=== PATIENT | male | born 1945 | race Caucasian/White ===

== ENCOUNTER 2019-02-03 06:15 | Day surgery (SDC) | payer MEDICARE ==
[2019-02-02 17:29] LABS: Absolute Lymphocytes (CBC) 1.3 K/uL (0.7-4.9); Basophils % 0.6 % (0-1.3); Eosinophils % 2.1 % (0-4.4); Lymphocytes % 10.1 % (15.3-44.8); Monocytes % 7.5 % (3.3-12.3); RBC Red Blood Cell Count 4.65 M/uL (4.33-5.43)
--- NOTE | 2019-02-02 17:34 | RAD REPORT ---
EXAM DESCRIPTION: RAD - Chest Pa And Lat (2 Views) - 02/02/2019 5:14 pm CLINICAL HISTORY: Preop chest, neck soft tissue surgery pending COMPARISON: December 2012 TECHNIQUE: PA and lateral views of the chest were obtained. FINDINGS: The lungs are clear of an acute infiltrate or mass. Calcified granuloma right midlung fie ld stable. Heart size is normal and central vasculature is within normal limits. No pleural effusion or pneumothorax seen. No acute bony finding noted. No aortic abnormality. IMPRESSION: No acute cardiopulmonary process. Chronic interstitial lung changes are present. Findings are similar to comparison.
[2019-02-02 17:54] LABS: Potassium 4.2 mmol/L (3.5-5.1)
--- OUTSIDE RECORDS SUMMARY | 2019-02-03 06:25 | XMS REPORT ---
:1945 [facility] Address [address] [place] [address] [address] [place] [address] Care Team Providers Name Role Phone Unavailable Unavailable Unavailable Problems This patient has no known problems. Allergies, Adverse Reactions, Alerts This patient has no known allergies or adverse reactions. Medications This patient has no known medications.
[2019-02-03] MEDS ORDERED: Ringers Lactate 1,000 ML IV ONE ×2 (06:53→08:40)
[2019-02-03] MEDS ORDERED: MIDAZOLAM HCL 2 MG/2 ML INJ ONE (07:28)
[2019-02-03] MEDS ORDERED: FENTANYL CITR 100 MCG/2 ML ONE (07:28)
[2019-02-03] MEDS ORDERED: PROPOFOL 200 MG/20 ML VIAL IV ONE (07:28)
[2019-02-03] MEDS ORDERED: LIDOCAINE 2% MPF 5 ML VIAL ONE (07:28)
[2019-02-03] MEDS ORDERED: CEFAZOLIN/SWI 1gm 1 GM/10 ML SYR ONE (07:49)
[2019-02-03] MEDS ORDERED: EPHEDRINE SULF 50 MG/ML VIAL ONE (08:14)
[2019-02-03] MEDS ORDERED: KETOROLAC 30 MG/ML INJ ONE (08:27)
--- NOTE | 2019-02-03 08:29 | P.BOP ---
Preoperative diagnosis: infected posterior neck subQ mass with abscess, cellulitis Postoperative diagnosis: same Primary procedure: Excision biopsy infected posterior neck subQ mass with abscess drainage Secondary procedure: 4 x 4x 1.5 cm Estimated blood loss: <10cc Specimen: mass Findings: abscess with purulent discharge Anesthesia: General Complications: None Transferred to: Recovery Room Condition: Good
[2019-02-03] MEDS ORDERED: CODEINE 30MG/APAP 300MG TAB ONE (09:41)
--- NOTE | 2019-02-10 15:48 | OP ---
Date of Procedure: 02/03/2019 Surgeon: Gideon Dodge MD Preoperative Diagnosis: Infected posterior neck subcutaneous mass with abscess and cellulitis. Postoperative Diagnosis: Infected posterior neck subcutaneous mass with abscess and cellulitis. Procedures: Excisional biopsy of infected posterior neck subcutaneous mass with abscess drainage, 4 x 4 x 1.5 cm. Estimated Blood Loss: Less than 10 cc. Specimen: Mass and abscess culture. Anesthesia: General plus local. Indications: This is a case of a male who comes to us with a posterior neck mass with abscess cellul itis, infected. Benefits, alternatives, and risks of excision fully explained, which include but are not limited to infection, bleeding, damage to adjacent structures, anesthesia complication, nonheali ng of wound, NM, and even . He also understands this may not relieve any symptoms. He might ne ed more than one surgical intervention. He understood, signed a consent. The area of concern was ma rked by me and the patient in the holding room. Description Of Procedure: The patient was brought to the operating room, placed in supine position. Anesthesia was done without complication. The posterior neck area was prepped and draped in usual s terile fashion. Local anesthesia was applied after time-out was called. A wedge incision was made i n the skin. We noticed the mass present goes all the way deep, and then deep to that mass there was abscess present. Purulent discharge was obtained for culture. Mass was completely excised. Hemosta sis obtained and the area was packed with wet-to-dry dressing. Loculations were explored and opened on that abscess. The area was profusely irrigated. Once again, hemostasis was obtained, and then th e area was packed. The patient tolerated the procedure well. The patient was sent to Recovery in st able condition. JACKI/HOWARD Voice ID: [id number] Report ID: [id number]
--- NOTE | 2019-02-10 15:48 | DS ---
Date of Discharge: 02/03/2019 Diagnoses: Infected posterior neck subcutaneous mass with complex abscess. Procedures: Excisional biopsy of infected posterior neck subcutaneous mass with drainage of a comple x abscess. Disposition: Home. Discharge Instructions: Activity as tolerated. No heavy lifting. Follow up in my office in 1 week. Call for appointment [phone]. Keep area dry for 24 hours, then wet-to-dry dressing daily. The alejandrina shelby stated he has a family member who will do that for him. For medications see orders. JACKI/MODL Voice ID: [id number] Report ID: [id number]
== END 2019-02-03 10:25 | disposition home or self-care (01) ==
LOC: OR 06:15
PROVIDERS: ATTEND Surgery
PROC: 0JB50ZZ Excision of Left Neck Subcutaneous Tissue and Fascia, Open Approach (ICD-10-PCS; principal; 2019-02-03 07:30)
DX: L72.0 Epidermal cyst (principal); L03.221 Cellulitis of neck; L02.11 Cutaneous abscess of neck; I11.9 Hypertensive heart disease without heart failure; I25.2 Old myocardial infarction; F17.210 Nicotine dependence, cigarettes, uncomplicated; Z79.02 Long term (current) use of antithrombotics/antiplatelets; Z79.899 Other long term (current) drug therapy; Z95.5 Presence of coronary angioplasty implant and graft
CPT/HCPCS: 11426; 87070; 85025; 80048; 36415; 87205; 88304; 87075; 71046; J2704; J2250; J3010; J0690; 88305

== ENCOUNTER 2022-07-27 08:19 | Emergency (ER) | payer OTHER ==
--- OUTSIDE RECORDS SUMMARY | 2022-07-27 08:22 | XMS REPORT | Continuity of Care Document ---
:1945 Author Organization [facility] Address [address] [place] [address] Dr. Carrero [address] [place] [id number] Care Team Providers Name Role Phone Unavailable Unavailable Unavailable Problems This patient has no known problems. Allergies, Adverse Reactions, Alerts This patient has no known allergies or adverse reactions. Medications This patient has no known medications. Procedures This patient has no known procedures. Results This patient has no known results.
[2022-07-27 09:30] LABS: Absolute Lymphocytes (CBC) 0.6 K/uL (0.7-4.9); Hematocrit 38.9 % (39.6-49.0); Lymphocytes % 2.6 % (15.3-44.8); MCV 92.2 fL (80-100); MPV 7.2 fL (7.6-11.3); RBC Red Blood Cell Count 4.22 M/uL (4.33-5.43)
[2022-07-27 09:32] LABS: Protime INR 1.62
[2022-07-27] MEDS ORDERED: FENTANYL CITR 100 MCG/2 ML ONE (09:34)
[2022-07-27] MEDS ORDERED: ONDANSETRON 4 MG/2 ML VIAL ONE (09:34)
[2022-07-27] MEDS ORDERED: NA CHLORIDE 0.9% 1,000 ML ONE (09:35)
[2022-07-27] MEDS ORDERED: DIGOXIN 0.25 MG/ML AMP ONE (09:35)
[2022-07-27] MEDS ORDERED: NA CHLORIDE 0.9% 100 ML IV ONE (09:35)
[2022-07-27] MEDS ORDERED: PIPERACIL/TAZO 3.375 GM VIAL IV ONE (09:35)
[2022-07-27] MEDS ORDERED: NA CHLORIDE 0.9% 500 ML ONE (09:35)
[2022-07-27 09:51] LABS: Albumin 2.2 g/dL (3.4-5.0); Bilirubin Direct 0.5 mg/dL (0-0.2); Magnesium 2.2 mg/dL (1.8-2.4); Potassium 4.6 mmol/L (3.5-5.1); Protein, Total 7.6 g/dL (6.4-8.2)
--- NOTE | 2022-07-27 10:23 | RAD REPORT ---
EXAM DESCRIPTION: RAD - Chest Single View - 07/27/2022 10:01 am CLINICAL HISTORY: ABDOMINAL DISTENTION COMPARISON: Portable 01/14/2013 TECHNIQUE: AP portable chest image was obtained 07/27/2022 10:01 am . FINDINGS: Lung volumes are low. No dense consolidation seen. Incidental calcified granuloma in the m id right lung field similar to comparison. There is interstitial and alveolar prominence suggesting a mild edema or infiltrate. Heart size is prominent but stable. Central vasculature is mildly prominen t. No pneumothorax or large pleural effusion. No acute bony abnormality seen. No acute aortic findings suspected. IMPRESSION: Mild edema pattern is evident. This could be from CHF/volume overload or interstitial in filtrate.
--- NOTE | 2022-07-27 10:36 | RAD REPORT ---
EXAM DESCRIPTION: CT - Abdomen Pelvis W Contrast - 07/27/2022 10:09 am CLINICAL HISTORY: Abdominal pain, acute, nonlocalized COMPARISON: CT ABDOMEN PELVIS WO CONTRAST dated 01/14/2013; Chest Single View dated 07/27/2022 TECHNIQUE: Biphasic, helical CT imaging of the abdomen and pelvis was performed following 100 ml non -ionic IV contrast. Oral contrast: No. All CT scans are performed using dose optimization technique as appropriate and may include automated exposure control or mA/KV adjustment according to patient size. FINDINGS: Lung base interstitial markings are mildly prominent. This could be atelectasis, scarring or mild interstitial edema or infiltrate. No pneumothorax or pleural effusion. No pericardial effusio n. The liver, spleen, and pancreas show no suspicious findings. Gallbladder and biliary tree are also wi thout suspicious finding. Symmetric renal function is seen with no hydronephrosis or suspicious renal mass. Multiple bilateral renal cysts are present. There is an exophytic 2.7 centimeter upper pole cyst on the right. A 2.5 santiago timeter cyst is present in the parenchyma of the upper pole. A partially exophytic 3.6 centimeter cys t is present lateral mid left kidney. No pyelonephritis or acute parenchymal process. No bladder abno rmalities. No adrenal abnormalities. No dilated bowel loops or bowel wall thickening. No appendicitis findings. From the cecum to the mid descending colon there is no acute finding. In the left lower quadrant at the distal most aspect of t he descending colon there is a 4.8 centimeter masslike density present. There is a 6 x 5.5 x 3.7 cent imeter abscess in the peritoneal fat lateral to the mass. The abscess involves the lateral left abdom inal wall and deep muscular layer. A smaller 3 x 2 cm abscess is present in the peritoneal fat tool supervisor ior to the mass. This abscess abuts the anterior pararenal fascia. The colon mass is partially or ful ly exophytic to the abdominal wall. There is stranding in the peritoneal fat. No extraluminal free ai r. Sigmoid colon and rectum are unremarkable. No free fluid or pneumatosis. Fat extends into the origin of each inguinal canal. No bulky lymphade nopathy. Disc and bone degenerative changes are present. No pathologic bone process. Vascular calcifications a re present. No acute vascular finding. IMPRESSION: A 4.8 centimeter masslike density is present in the distal most descending colon segment in the left lower quadrant. Colon malignancy is a primary consideration. Patient does not demonstrate diverticulosis making diver ticulitis unlikely. Nonspecific colitis is possible. Contained colon perforation has likely occurred. There are 6 centimeter and 3 centimeter sized absces ses present lateral and posterior to the colon mass density. Lateral 6 centimeter abscess involves th e abdominal wall and deep layer the oblique musculature. The smaller 3 centimeter posterior abscess a buts the pararenal fascia. Retroperitoneal extension is not confirmed.
[2022-07-27] MEDS ORDERED: METOPROLOL TARTRATE 5 MG/5 ML INJ IV ONE (10:55)
[2022-07-27] MEDS ORDERED: FUROSEMIDE 20 MG/ 2ML VIAL ONE (10:55)
[2022-07-27 11:13] LABS: SARS-CoV-2 Antigen Rapid Res Negative (Negative)
[2022-07-27 11:17] LABS: Thyroid Stimulating Hormone 7.57 uIU/mL (0.360-3.740)
[2022-07-27] MEDS ORDERED: HYDROMORPHONE HCL 1 MG/ML INJ ONE (11:43)
--- NOTE | 2022-07-27 12:06 | EDPHYS ---
Physician Documentation [facility] Name: Martinez Nye Age: 76 yrs Sex: Male : 1945 Arrival Date: 07/27/2022 Time: 08:23 Bed 2 Private MD: ED Physician Jose Smart HPI: 07/27 11:50 This 76 yrs old Male presents to ER via Wheelchair with complaints of kendy Abdominal Pain. 11:50 The patient has shortness of breath at rest, with light activity. Onset: The kendy symptoms/episode began/occurred 14 day(s) ago. Historical: - Allergies: 08:59 No Known Allergies; iw - PMHx: 08:59 Myocardial infarction; iw - PSHx: 08:59 cardiac stents; iw - Social history:: Smoking status: unknown. - Family history:: not pertinent. ROS: 11:50 Constitutional: Negative for fever, chills, and weight loss, Eyes: Negative for injury, kendy pain, redness, and discharge, ENT: Negative for injury, pain, and discharge, Neck: Negative for injury, pain, and swelling, Back: Negative for injury and pain, : Negative for injury, bleeding, discharge, and swelling, MS/Extremity: Negative for injury and deformity, Skin: Negative for injury, rash, and discoloration, Neuro: Negative for headache, weakness, numbness, tingling, and seizure, Psych: Negative for depression, anxiety, suicide ideation, homicidal ideation, and hallucinations, Allergy/Immunology: Negative for hives, rash, and allergies, Endocrine: Negative for neck swelling, polydipsia, polyuria, polyphagia, and marked weight changes, Hematologic/Lymphatic: Negative for swollen nodes, abnormal bleeding, and unusual bruising. 11:50 Cardiovascular: Positive for palpitations, paroxysmal nocturnal dyspnea. 11:50 Respiratory: Positive for cough, shortness of breath, on exertion. 11:50 Abdomen/GI: Positive for abdominal pain, nausea, abdominal distension, of the left upper quadrant and left lower quadrant. Exam: 11:50 Constitutional: This is a well developed, well nourished patient who is awake, alert, kendy and in no acute distress. Head/Face: Normocephalic, atraumatic. Eyes: Pupils equal round and reactive to light, extra-ocular motions intact. Lids and lashes normal. Conjunctiva and sclera are non-icteric and not injected. Cornea within normal limits. Periorbital areas with no swelling, redness, or edema. ENT: Nares patent. No nasal discharge, no septal abnormalities noted. Tympanic membranes are normal and external auditory canals are clear. Oropharynx with no redness, swelling, or masses, exudates, or evidence of obstruction, uvula midline. Mucous membranes moist. Neck: Trachea midline, no thyromegaly or masses palpated, and no cervical lymphadenopathy. Supple, full range of motion without nuchal rigidity, or vertebral point tenderness. No Meningismus. Chest/axilla: Normal chest wall appearance and motion. Nontender with no deformity. No lesions are appreciated. Back: No spinal tenderness. No costovertebral tenderness. Full range of motion. Male : Normal genitalia with no discharge or lesions. Skin: Warm, dry with normal turgor. Normal color with no rashes, no lesions, and no evidence of cellulitis. MS/ Extremity: Pulses equal, no cyanosis. Neurovascular intact. Full, normal range of motion. Neuro: Awake and alert, GCS 15, oriented to person, place, time, and situation. Cranial nerves II-XII grossly intact. Motor strength 5/5 in all extremities. Sensory grossly intact. Cerebellar exam normal. Normal gait. Psych: Awake, alert, with orientation to person, place and time. Behavior, mood, and affect are within normal limits. 11:50 Cardiovascular: Rate: tachycardic, actual rate is 140 bpm, Rhythm: irregularly irregular, Pulses: Pulses are 4+ in bilateral radial, brachial, femoral, popliteal, posterior tibial and and dorsalis pedis arteries.. Heart sounds: normal, Edema: is not appreciated, JVD: is not appreciated. 11:50 ECG was reviewed by the Attending Physician. 11:50 Respiratory: the patient does not display signs of respiratory distress, Respirations: normal, no acute changes, is not noted, Breath sounds: rales, that are mild, are located in both bases, bronchial sounds, that are mild, are scattered, rhonchi, that are mild, are scattered, stridor, is not appreciated, + upper airway congestion. Respiratory rate: 18 11:50 Abdomen/GI: Inspection: distension, Bowel sounds: diminished, in all quadrants, Palpation: moderate abdominal tenderness, rebound tenderness, is appreciated in the left lower quadrant, voluntary guarding, is elicited in the left lower quadrant, Liver: no appreciated palpable abnormalities, Hernia: not appreciated. 11:50 Musculoskeletal/extremity: DVT Exam: No signs of deep vein thrombosis. no pain, no swelling, no tenderness, negative Homans' sign noted on exam, no appreciated bluish discoloration, no erythema, no increased warmth. Vital Signs: 08:57 BP 101 / 82; Pulse 145; Resp 16; Temp 97.4; Pulse Ox 97% ; Weight 77.11 kg; Height 5 iw ft. 7 in. (170.18 cm); Pain 10/10; 09:43 BP 105 / 73; Pulse 133; Resp 18; Pulse Ox 97% on R/A; ph 10:42 BP 107 / 62; Pulse 112; Resp 22; Pulse Ox 98% on R/A; ld1 10:51 BP 116 / 67; Pulse 104; Resp 18; Pulse Ox 99% on R/A; Pain 8/10; ld1 11:55 BP 113 / 66; Pulse 101; Resp 20; Pulse Ox 94% on R/A; ph 12:35 BP 102 / 68; Pulse 105; eh3 12:39 BP 136 / 81; Pulse 105; Resp 20; Pulse Ox 95% on R/A; eh3 08:57 Body Mass Index 26.63 (77.11 kg, 170.18 cm) iw MDM: 08:26 Patient medically screened. kendy 11:57 Differential diagnosis: Bronchitis CHF exacerbation, dehydration, pneumonia, reactive kendy airway disease, bowel obstruction, Cholelithiasis, diverticulitis, Mesenteric ischemia or infarction, non-specific abd pain, pancreatitis, Peptic Ulcer Disease, Pyelonephritis, urinary tract infection. Antibiotic administration: ZOSYN. The patient's Wells Deep Vein Thrombosis Score was calculated as follows: Heart Rate >100 BPM (1.5 Pts) Total Score: 0-2 Pts- Low Risk. The patient's pulmonary embolism risk score was calculated as follows: the patients heart rate is greater than 100 beats per minute (1.5 Pts) Total Score: 0-2 points. This patient was found to be at low risk for a pulmonary embolism by using the Well's assessment criteria. Immunization status: Pneumococcal vaccine: Not up to date Influenza vaccine: Not up to date. Data reviewed: vital signs, nurses notes, lab test result(s), cardiac enzymes, CBC, electrolytes, hepatic panel, urinalysis, EKG, radiologic studies. Data interpreted: monitoring coordinator: rate is 122 beats/min, rhythm is atrial fibrillation, Pulse oximetry: on room air is 94 %. Test interpretation: by ED physician or midlevel provider: ECG, plain radiologic studies. Counseling: I had a detailed discussion with the patient and/or guardian regarding: the historical points, exam findings, and any diagnostic results supporting the discharge/admit diagnosis, lab results, radiology results, the need to transfer to another facility, for higher level of care, [facility] does not immediately have the required specialist. Physician consultation: Gideon Buck MD regarding consult, patient's condition, after a discussion of the case, a recommendation for transfer for higher level of care is made, DR BUCK IN OR CURRENTLY. 07/27 08:30 Order name: Basic Metabolic Panel; Complete Time: 10:18 [facility] 07/27 08:30 Order name: CBC with Diff [facility] 07/27 08:30 Order name: LFT's; Complete Time: 10:18 [facility] 07/27 08:30 Order name: Magnesium; Complete Time: 10:18 [facility] 07/27 08:30 Order name: NT PRO-BNP; Complete Time: 10:18 [facility] 07/27 08:30 Order name: PT-INR; Complete Time: 09:32 [facility] 07/27 08:30 Order name: Troponin HS; Complete Time: 10:18 [facility] 07/27 08:30 Order name: XRAY Chest (1 view); Complete Time: 10:40 [facility] 07/27 08:30 Order name: Lipase; Complete Time: 10:18 [facility] 07/27 08:31 Order name: CT Abd/Pelvis - IV Contrast Only; Complete Time: 10:40 [facility] 07/27 09:13 Order name: TSH; Complete Time: 11:45 [facility] 07/27 09:13 Order name: SARS RAPID; Complete Time: 11:45 [facility] 07/27 09:36 Order name: Manual Differential [facility] 07/27 11:20 Order name: T4 Free; Complete Time: 11:45 [facility] 07/27 08:30 Order name: EKG; Complete Time: 08:31 [facility] 07/27 08:30 Order name: Cardiac monitoring; Complete Time: 09:30 [facility] 07/27 08:30 Order name: EKG - Nurse/Tech; Complete Time: 09:55 [facility] 07/27 08:30 Order name: IV Saline Lock; Complete Time: 09:43 [facility] 07/27 08:30 Order name: Labs collected and sent; Complete Time: 09:30 [facility] 07/27 08:30 Order name: O2 Per Protocol; Complete Time: 09:30 [facility] 07/27 08:30 Order name: O2 Sat Monitoring; Complete Time: 09:30 [facility] 07/27 09:33 Order name: IV Saline Lock - Large Bore; Complete Time: :43 [facility] EC:50 Rate is 145 beats/min. Rhythm is irregularly irregular. QRS [place] is Normal. GA interval kendy is normal. QRS interval is normal. QT interval is normal. No Q waves. T waves are Normal. No ST changes noted. Clinical impression: Atrial Fibrillation. Interpreted by me. Reviewed by me. Administered Medications: 09:48 Drug: NS 0.9% 1000 ml Route: IV; Rate: 125 ml/hr; Site: left antecubital; ld1 12:36 Follow up: IV Status: Infusion continued upon transfer 3 09:48 Drug: NS 0.9% 500 ml Route: IV; Rate: bolus; Site: left antecubital; ld1 12:36 Follow up: IV Status: Completed infusion; IV Intake: 500ml eh3 09:48 Drug: Digoxin 0.5 mg Route: IVP; Site: left antecubital; ld1 12:37 Follow up: Response: Cardiac rhythm changed eh3 09:48 Drug: Zosyn (piperacillin-tazobactam) 3.375 grams Route: IVPB; Infused Over: 60 mins; ld1 Site: left antecubital; 11:00 Follow up: Response: No adverse reaction; IV Status: Completed infusion; IV Intake: eh3 100ml 09:48 Drug: fentaNYL (PF) 25 mcg Route: IVP; Site: left antecubital; ld1 12:37 Follow up: Response: No adverse reaction eh3 09:48 Drug: fentaNYL (PF) 25 mcg Route: IVP; Site: left antecubital; ld1 12:37 Follow up: Response: No adverse reaction eh3 09:48 Drug: Zofran (Ondansetron) 4 mg Route: IVP; Site: left antecubital; ld1 12:38 Follow up: Response: No adverse reaction eh3 10:57 Drug: Lopressor (metoprolol) 5 mg Route: IVP; Site: left antecubital; ld1 12:35 Follow up: BP 102 / 68; Pulse 105 bpm; Response: Other eh3 10:57 Drug: fentaNYL (PF) 25 mcg Route: IVP; Site: left antecubital; ld1 12:34 Follow up: Response: No adverse reaction eh3 10:58 Drug: Lasix (furosemide) 20 mg Route: IVP; Site: left antecubital; ld1 12:35 Follow up: Response: No adverse reaction eh3 11:44 Drug: Dilaudid (HYDROmorphone) 1 mg Route: IVP; Site: left antecubital; ld1 12:34 Follow up: Response: Pain is decreased eh3 Disposition: 12:05 Critical Care:. kendy Disposition Summary: 07/27/22 12:05 Transfer Ordered Transfer Location: [facility] kendy Reason: Higher level of care kendy Condition: Fair kendy Problem: new kendy Symptoms: have improved kendy Accepting Physician: ROLANDO ANTONIO , SURGEON DR ROBERTO(07/27/22 13:02) 3 Diagnosis - Unspecified atrial fibrillation - WITH RVR kendy - Elevated white blood cell count kendy - Perforation of intestine (nontraumatic) - COLON MASS, CONTAINED ABSCESS 6CM, 3 CM kendy - Lower abdominal pain, unspecified - LEFT LOWER QUADRANT kendy Forms: - Medication Reconciliation Form kendy - SBAR form kendy Critical care time excluding procedures: 12:05 Critical care time: Bedside Care: 25 minutes, Consultation: 15 minutes. Total time: 40 kendy minutes Signatures: Dispatcher [employer] Jose Tomlin MD MD cha Mickail, Joel, PA PA Kristy Pastrana RN RN Araceli Stover RN RN Sharda Rosales RN RN ld1 Charla Stover RN RN 3 Corrections: (The following items were deleted from the chart) 11:52 11:50 Back: Positive for kendy kendy 13:02 12:05 ROLANDO ANTONIO , SURGEON DR FELISA larry 3
--- NOTE | 2022-07-27 12:06 | ER ---
Nurse's Notes [facility] Name: Martinez Nye Age: 76 yrs Sex: Male : 1945 Arrival Date: 07/27/2022 Time: 08:23 Bed 2 Private MD: Diagnosis: Unspecified atrial fibrillation-WITH RVR;Elevated white blood cell count;Perforation of intestine (nontraumatic)-COLON MASS, CONTAINED ABSCESS 6CM, 3 CM;Lower abdominal pain, unspecified-LEFT LOWER QUADRANT Presentation: 07/27 08:57 Chief complaint: Patient states: left lower abd pain X 10-12 days, no diarrhea or iw vomiting. Coronavirus screen: At this time, the client does not indicate any symptoms associated with coronavirus-19. Ebola Screen: Patient negative for fever greater than or equal to 101.5 degrees Fahrenheit, and additional compatible Ebola Virus Disease symptoms Patient denies exposure to infectious person. Patient denies travel to an Ebola-affected area in the 21 days before illness onset. No symptoms or risks identified at this time. Initial Sepsis Screen: Does the patient meet any 2 criteria? No. Patient's initial sepsis screen is negative. Does the patient have a suspected source of infection? No. Patient's initial sepsis screen is negative. Risk Assessment: Do you want to hurt yourself or someone else? Patient reports desire/thoughts of hurting themselves or someone else. Provider notified. Onset of symptoms was July 16, 2022. 08:57 Method Of Arrival: Wheelchair iw 08:57 Acuity: QUENTIN 3 iw 09:11 Acuity: QUENTIN 2 iw Historical: - Allergies: 08:59 No Known Allergies; iw - PMHx: 08:59 Myocardial infarction; iw - PSHx: 08:59 cardiac stents; iw - Social history:: Smoking status: unknown. - Family history:: not pertinent. Screenin:41 Abuse screen: Denies threats or abuse. Denies injuries from another. Nutritional ph screening: No deficits noted. Tuberculosis screening: No symptoms or risk factors identified. Fall Risk None identified. Assessment: 09:41 General: Appears in no apparent distress. comfortable, Behavior is cooperative, ph appropriate for age. Pain: Complains of pain in left lower quadrant. Neuro: Level of Consciousness is awake, alert, obeys commands, Oriented to person, place, time. Cardiovascular: Capillary refill < 3 seconds in bilateral fingers Patient's skin is warm and dry. Respiratory: Airway is patent Respiratory effort is even, unlabored. GI: Abdomen is non-distended, Abd is soft X 4 quads Reports lower abdominal pain, Patient currently denies nausea, vomiting. Derm: Skin is fragile, is thin, Skin is pink, warm \T\ dry. Musculoskeletal: Circulation, motion, and sensation intact. Range of motion: intact in all extremities. 09:49 Reassessment: No changes from previously documented assessment. Patient and/or family ld1 updated on plan of care and expected duration. Pain level reassessed. Patient is alert, oriented x 3, equal unlabored respirations, skin warm/dry/pink. 12:39 General: Appears in no apparent distress. comfortable, Behavior is cooperative, eh3 appropriate for age. Pain: Complains of pain in left lower quadrant. Neuro: Level of Consciousness is awake, alert, obeys commands, Oriented to person, place, time. Cardiovascular: Capillary refill < 3 seconds Patient's skin is warm and dry. Respiratory: Airway is patent Respiratory effort is even, unlabored, Respiratory pattern is regular, symmetrical. GI: Abdomen is round non-distended, Bowel sounds present X 4 quads. Abd is soft X 4 quads. : No signs and/or symptoms were reported regarding the genitourinary system. EENT: No signs and/or symptoms were reported regarding the EENT system. Derm: No signs and/or symptoms reported regarding the dermatologic system. Musculoskeletal: Circulation, motion, and sensation intact. Range of motion: intact in all extremities. Vital Signs: 08:57 BP 101 / 82; Pulse 145; Resp 16; Temp 97.4; Pulse Ox 97% ; Weight 77.11 kg; Height 5 iw ft. 7 in. (170.18 cm); Pain 10/10; 09:43 BP 105 / 73; Pulse 133; Resp 18; Pulse Ox 97% on R/A; ph 10:42 BP 107 / 62; Pulse 112; Resp 22; Pulse Ox 98% on R/A; ld1 10:51 BP 116 / 67; Pulse 104; Resp 18; Pulse Ox 99% on R/A; Pain 8/10; ld1 11:55 BP 113 / 66; Pulse 101; Resp 20; Pulse Ox 94% on R/A; ph 12:35 BP 102 / 68; Pulse 105; eh3 12:39 BP 136 / 81; Pulse 105; Resp 20; Pulse Ox 95% on R/A; eh3 08:57 Body Mass Index 26.63 (77.11 kg, 170.18 cm) iw Vitals: 09:43 Cardiac Rhythm Assessment Atrial fibrillation W/rapid ventricular response. ph ED Course: 08:23 Patient arrived in ED. rg4 08:26 Jose Smart MD is Attending Physician. kendy 08:59 Triage completed. iw 09:00 Arm band placed on. iw 09:19 Initial lab(s) drawn, by me, sent to lab. tm3 09:41 Patient has correct armband on for positive identification. Bed in low position. Call ph light in reach. Side rails up X 1. Client placed on continuous cardiac and pulse oximetry monitoring. NIBP monitoring applied. Door closed. Noise minimized. Warm blanket given. 09:41 Inserted saline lock: 20 gauge in left antecubital area, using aseptic technique. Blood ph collected. 09:48 Sharda Rosales, RN is Primary Nurse. ld1 10:02 XRAY Chest (1 view) In Process Unspecified. EDMS 10:11 CT Abd/Pelvis - IV Contrast Only In Process Unspecified. EDMS 10:51 SARS RAPID Sent. mm9 10:51 COVID swab sent to lab. mm9 10:56 initiated a transfer with ANA MARÍA from the [facility]. eb 11:[address] Parsons the General Surgeon seasoner hand for [facility] with Dr. Smart for eb patient transfer consultation. 11:[address] Muller the hospitalist seasoner hand for [facility] with Dr. Smart for eb patient transfer consultation. 11:26 administrative approval given by ANA MARÍA Kan/ patient has been accepted to [facility] eb 15 T bed 1563/ Dr. Muller has accepted the patient in transfer/ report to be called to [phone]. 12:11 Primary Nurse role handed off by Sharda Rosales, RN 3 12:11 Charla Stover, LACY is Primary Nurse. eh3 12:38 No provider procedures requiring assistance completed. Patient transferred, IV remains eh3 in place. Administered Medications: 09:48 Drug: NS 0.9% 1000 ml Route: IV; Rate: 125 ml/hr; Site: left antecubital; ld1 12:36 Follow up: IV Status: Infusion continued upon transfer eh3 09:48 Drug: NS 0.9% 500 ml Route: IV; Rate: bolus; Site: left antecubital; ld1 12:36 Follow up: IV Status: Completed infusion; IV Intake: 500ml eh3 09:48 Drug: Digoxin 0.5 mg Route: IVP; Site: left antecubital; ld1 12:37 Follow up: Response: Cardiac rhythm changed eh3 09:48 Drug: Zosyn (piperacillin-tazobactam) 3.375 grams Route: IVPB; Infused Over: 60 mins; ld1 Site: left antecubital; 11:00 Follow up: Response: No adverse reaction; IV Status: Completed infusion; IV Intake: eh3 100ml 09:48 Drug: fentaNYL (PF) 25 mcg Route: IVP; Site: left antecubital; ld1 12:37 Follow up: Response: No adverse reaction eh3 09:48 Drug: fentaNYL (PF) 25 mcg Route: IVP; Site: left antecubital; ld1 12:37 Follow up: Response: No adverse reaction eh3 09:48 Drug: Zofran (Ondansetron) 4 mg Route: IVP; Site: left antecubital; ld1 12:38 Follow up: Response: No adverse reaction eh3 10:57 Drug: Lopressor (metoprolol) 5 mg Route: IVP; Site: left antecubital; ld1 12:35 Follow up: BP 102 / 68; Pulse 105 bpm; Response: Other eh3 10:57 Drug: fentaNYL (PF) 25 mcg Route: IVP; Site: left antecubital; ld1 12:34 Follow up: Response: No adverse reaction eh3 10:58 Drug: Lasix (furosemide) 20 mg Route: IVP; Site: left antecubital; ld1 12:35 Follow up: Response: No adverse reaction eh3 11:44 Drug: Dilaudid (HYDROmorphone) 1 mg Route: IVP; Site: left antecubital; ld1 12:34 Follow up: Response: Pain is decreased eh3 Medication: 09:41 VIS not applicable for this client. ph Intake: 11:00 IV: 100ml; Total: 100ml. eh3 12:36 IV: 500ml; Total: 600ml. eh3 Outcome: 12:05 ER care complete, transfer ordered by MD. larry 12:38 Transferred by ground EMS [facility]. to [facility], Transfer eh3 form completed. 12:38 Condition: stable 12:38 Instructed on the need for transfer. 13:02 Patient left the ED. eh3 Signatures: Dispatcher [employer] EDMS Efren Cobos [facility] Jsoe Smart MD MD cha Williams, Irene, RN RN iw Araceli Stover RN RN Darleen Bunch rg4 Lexi Worthington Lauren, RN RN ld1 Charla Stover RN RN 3 Maye Dodge mm9 Corrections: (The following items were deleted from the chart) 09:11 08:57 BP 101 / 82; Pulse 99bpm; Resp 16bpm; Pulse Ox 97%; Temp 97.4F; 77.11 kg; Height iw 5 ft. 7 in.; BMI: 26.6; Pain 10/10; iw 11:32 11:[address] Melendez the hospitalist seasoner hand for [facility] with Dr. Berry ross for patient transfer consultation. cody 12:35 12:34 Response: Other 3 3 12:41 12:38 GI: Bowel sounds present X 4 quads. eh3 eh3
[2022-07-27 12:40] LABS: Blood Morphology Comment NOT SEEN (NOT SEEN); Platelet Estimate INCR
[2022-07-27 13:07] VITALS: TEMP 97.4
[2022-07-27 13:14] VITALS: BP 136/81; O2SAT 95
--- NOTE | 2022-07-28 13:48 | EKG ---
Test Date: 2022-07-27 Test Time: 09:09:47 [employer] Console Operator Track: DAE MEASUREMENT RESULTS: Intervals: Rate: 145 NM: QRSD: 78 QT: 298 QTc: 462 Wrights: P: NM: QRS: 31 T: -18 INTERPRETIVE STATEMENTS: Atrial fibrillation with rapid ventricular response Low voltage QRS Septal infarct, age undetermined Possible Inferior infarct, age undetermined Abnormal ECG Compared to ECG 01/14/2013 20:51:28 Low QRS voltage now present Sinus rhythm no longer present Myocardial infarct finding still present Electronically Signed On 07-28-22 13:46:02 FILLER SHREDDER HELPER by Lorenzo Chavarria
== END 2022-07-27 13:02 | disposition short-term general hospital (02) ==
LOC: ER 08:19
DX: I48.19 Other persistent atrial fibrillation (principal); D72.829 Elevated white blood cell count, unspecified; K63.1 Perforation of intestine (nontraumatic); R10.32 Left lower quadrant pain; Z95.818 Presence of other cardiac implants and grafts
CPT/HCPCS: 96365; 96361; 93005; 85025; 80048; 36415; 83735; 85610; 80076; 84443; 84484; 84439; 83690; 83880; 74177; 71045; 96375; 99285; 87811; Q9967; J1940; J1160; J2543; J3010; J1170; J7040; J7030; J2405

== ENCOUNTER 2022-08-24 14:23 | Emergency (ER) | payer OTHER ==
--- OUTSIDE RECORDS SUMMARY | 2022-08-24 14:28 | XMS REPORT | Continuity of Care Document ---
:1945 Author Organization [facility] t Address [address] [place] [address] Care Team Providers Name Role Phone Yesi Torres Attending Clinician [phone] YESI GONG Attending Clinician Unavailable BALDOMERO BOSE Attending Clinician Unavailable KIMBERLI WOODY Attending Clinician Unavailable Kimberli Woody MD Attending Clinician [phone] Can Wilder MD Attending Clinician Baldomero Bose MD Attending Clinician CAN WILDER Admitting Clinician Unavailable Payers Payer Name Policy Type Policy Number Effective Date Expiration Date S ource Problems Condition Condition Condition Status Onset Resolution Last Treating Co mments Source Name Details Category Date Date Treatment Clinician Date Abscess, Abscess, Disease Active 2021-08 [facility]: Medical 00 Center Allergies, Adverse Reactions, Alerts Allergy Allergy Status Severity Reaction(s) Onset Inactive Treating Comm ents Source Name Type Date Date Clinician NO KNOWN Allergy Active [facility] Social History Social Habit Start Date Stop Date Quantity Comments Source History SDOH [facility] Alcohol Std Drinks Medica l Center History SDOH [facility] Alcohol Binge Medical Tarik [facility] History SDOH [facility] Alcohol Comment Medical C enter Cigarettes smoked 2022-07-28 2022-07-[address] [facility] current (pack per 00:00:00 00:00:00 Medical Center day) - Reported Alcohol intake 2022-07-28 2022-07-[address] [facility] 00:00:00 00:00:00 [facility] SDOH 2022-07-28 2022-07-[address] [facility] Alcohol Frequency 00:00:00 00:00:00 Medical Center Exposure to 2022-07-17 2022-07-[address] [facility] SARS-CoV-2 (event) 00:00:00 23:56:00 Medica l [place] History of tobacco 2022-01-[address] [facility] [facility] use [facility] Sex Assigned At [address] [facility] 00[facility]00:00 00:00:00 Medical Center Smoking Status Start Date Stop Date Source Former smoker 2022-07-28 00:00:00 2022-07-28 00:00:[address] [facility] Center Medications Ordered Filled Start Stop Current Ordering Indication Dosage Frequency Signature Comments Components Source Medication Medication Date Date Medication? Clinician (SIG) Name Name atorsia 2021-08 Yes 40mg QD Take [address] [facility] (LIPITOR) - by mouth Luke s 40 MG 16:43: daily. Medical tablet 59 Center metoprolol 2021-08 Yes 12.5mg Q.5D Take 12.[address] tartrate 2-09 mg by Lukes (LOPRESSOR) 16:43: mouth 2 Med ical 25 MG 59 (two) Center tablet times daily. aspirin 81 2021-08 Yes 81mg QD Take [address] MG EC -09 by mouth [facility]ukes tablet 16:43: daily. Medical 59 Center clopidogreL 2021-08- No 75mg QD Take [address] (PLAVIX) 75 10-02 by mouth Maribel es mg tablet 12:04: 00:00 daily. Medic al 07 :00 Center cyclobenzap 2021-08- No 10mg Take [address] rine -05 05- by mouth 3 [facility]ukes (FLEXERIL) 12:04: 00:00 (three) Med ical 10 MG 07 :00 times Center tablet daily as needed for Muscle spasms. apixaban 2021-08- Yes 5mg Q.5D Take [address] (ELIQUIS) 5 2-09 03-09 tablet (5 Gregoria kes mg Tab 00:00: 23:59 mg total) Medic al tablet 00 :00 by mouth 2 Center (two) times daily for 90 days. levoFLOXaci 2021-08 No 750mg QD Take [address] n 10-02 tablet [facility]ukes (LEVAQUIN) 00:00: 23:59 (750 mg Med ical 750 MG 00 :00 total) by Center tablet mouth daily for 14 days. metroNIDAZO 2021-08 No 500mg [id number] Take [address] LE (FLAGYL) 10-02 [id number] tablet [facility] 500 MG 00:00: 23:59 3D (500 mg Medical tablet 00 :00 total) by Center mouth 3 (three) times daily for 14 days. Vital Signs Vital Name Observation Time Observation Value Comments Source WEIGHT 2022-08-01 05:51:00 70.126 kg WEIGHT 2022-07-31 05:19:00 71.714 kg WEIGHT 2022-07-29 10:00:00 71.94 kg WEIGHT 2022-07-29 06:44:00 32.432 kg WEIGHT 2022-07-28 04:20:00 72.9 kg HEIGHT 2022-07-27 16:15:00 170.2 cm WEIGHT 2022-07-27 16:15:00 72.167 kg WEIGHT 2022-08-01 05:51:00 70.126 kg WEIGHT 2022-07-31 05:19:00 71.714 kg WEIGHT 2022-07-29 10:00:00 71.94 kg WEIGHT 2022-07-29 06:44:00 32.432 kg WEIGHT 2022-07-28 04:20:00 72.9 kg HEIGHT 2022-07-27 16:15:00 170.2 cm WEIGHT 2022-07-27 16:15:00 72.167 kg WEIGHT 2022-08-01 05:51:00 70.126 kg WEIGHT 2022-07-31 05:19:00 71.714 kg WEIGHT 2022-07-29 10:00:00 71.94 kg WEIGHT 2022-07-29 06:44:00 32.432 kg WEIGHT 2022-07-28 04:20:00 72.9 kg HEIGHT 2022-07-27 16:15:00 170.2 cm WEIGHT 2022-07-27 16:15:00 72.167 kg Systolic blood 2022-08-01 16:12:00 129 mm[Hg] [facility] Diastolic blood 2022-08-01 16:12:00 88 mm[Hg] [facility] Heart rate 2022-08-01 16:12:00 70 /min [facility] Body temperature 2022-08-01 16:12:00 36.44 [place] [facility] Respiratory rate 2022-08-01 16:12:00 18 /min [facility] Oxygen saturation in 2022-08-01 16:12:00 95 /min [facility] Arterial blood by Medical Ce nter Pulse oximetry Body weight 2022-08-01 05:51:00 70.126 kg [facility] BMI 2022-08-01 05:51:00 24.21 kg/m2 [facility] Body height 2022-07-27 16:15:00 170.2 cm [facility] Procedures Procedure Date / Time Performing Clinician Source Performed POCT-GLUCOSE METER 2022-08-01 12:54:00 [facility] Medical Center POCT-GLUCOSE METER 2022-08-01 09:02:00 [facility] Center CBC W/PLT COUNT & AUTO 2022-08-01 04:27:00 [facility] BASIC METABOLIC PANEL 2022-08-01 04:27:00 [facility] CBC W/PLT COUNT & AUTO 2022-08-01 04:27:00 [facility] CBC W/PLT COUNT & AUTO 2022-07-31 05:33:00 [facility] BASIC METABOLIC PANEL 2022-07-31 05:33:00 [facility] APTT 2022-07-31 05:33:00 [facility] W[facility] & AUTO 2022-07-31 05:33:00 [facility] 00:04:00 Can Wilder Juan [facility] APTT 2022-07-30 18:18:[facility] 12:24:00 Juice, [facility] NM MYOCARDIAL PERFUSION 2022-07-30 09:52:00 Jose Tamayo [facility] PET/CT (REST & STRESS) Medical C enter TREADMILL 2022-07-30 09:46:50 Unknown, 7 [facility] TOLERANCE(NON-NUCLEAR Medical Ce nter TREADMILL) ECG 12-LEAD 2022-07-30 09:43:05 Unknown, 7 [facility] ECG 12-LEAD 2022-07-30 09:40:31 Unknown, 7 [facility] VANCOMYCIN LEVEL, TROUGH 2022-07-30 04:27:00 Crystal Ly [facility] CBC W/PLT COUNT & AUTO 2022-07-30 04:27:00 Juice [facility] BASIC METABOLIC PANEL 2022-07-30 04:27:00 Juice, [facility] CBC W/PLT COUNT & AUTO 2022-07-30 04:27:00 Juice [facility] APTT 2022-07-30 00:36:00 Can Wilder Juan [facility] APTT 2022-07-29 22:32:00 Can Wilder [facility] APTT 2022-07-29 12:43:00 Can Wilder [facility] US DRAINAGE WITH CATH 2022-07-29 08:49:00 Verónica Armendariz [facility] CYTOLOGY 2022-07-29 08:40:00 Can Wilder [facility] BODY FLUID CULTURE + GRAM 2022-07-29 08:39:00 Can Wilder [facility] ANAEROBIC CULTURE 2022-07-29 08:39:00 Can Wilder [facility] FUNGUS CULTURE + SMEAR 2022-07-29 08:37:00 [facility] CBC (HEMOGRAM ONLY) 2022-07-29 04:36:00 MeñoCanhir [facility] SARS-COV2/RT-PCR (HS & 2022-07-29 03:26:[address] [facility] REF LABS) [facility] APTT 2022-07-28 21:05:00 [facility] PROCALCITONIN 2022-07-28 21:01:00 [facility] LACTIC ACID, VENOUS 2022-07-28 21:01:00 [facility] CARCINOEMBRYONIC ANTIGEN 2022-07-28 15:11:00 [facility] (CEA) [facility] LACTIC ACID, VENOUS 2022-07-28 15:11:00 Abimael Patel [facility] 2D ECHO W/ DOPPLER 2022-07-28 12:40:17 MeñoCan [facility] (CW/PW/COLOR) [facility] APTT 2022-07-28 09:12:00 [facility] CBC (HEMOGRAM ONLY) 2022-07-28 01:51:00 [facility] COMPREHENSIVE METABOLIC 2022-07-28 01:50:00 MeñoCanhir [facility] MAGNESIUM 2022-07-28 01:50:00 [facility] PHOSPHORUS 2022-07-28 01:50:00 [facility] APTT 2022-07-28 01:50:00 Meño [facility] PROTHROMBIN TIME/INR 2022-07-28 01:50:00 Ali, [facility] SODIUM, RANDOM URINE 2022-07-27 19:10:00 Meño [facility] OSMOLALITY, URINE 2022-07-27 19:10:00 Meño [facility] LACTIC ACID, VENOUS 2022-07-27 18:08:00 Meño [facility] PLATELET COUNT 2022-07-27 17:21:00 Meño [facility] APTT 2022-07-27 17:21:00 Meño [facility] ECG 12-LEAD 2022-07-27 16:07:48 Meño [facility] BLOOD CULTURE 2022-07-27 16:04:00 Meño [facility] BLOOD CULTURE 2022-07-27 16:01:00 Meño [facility] CBC (HEMOGRAM ONLY) 2022-07-27 16:01:00 Meño [facility] COMPREHENSIVE METABOLIC 2022-07-27 16:01:[address] [facility] HIGH SENSITIVITY TROPONIN I 2022-07-27 16:01:00 [facility] TSH/FREE T4 IF INDICATED 2022-07-27 16:01:00 Meño [facility] MAGNESIUM 2022-07-27 16:01:00 Meño [facility] PHOSPHORUS 2022-07-27 16:01:00 [facility] T4, FREE 2022-07-27 16:01:00 [facility] Plan of Care Planned Activity Planned Date Details Comments Source Future Scheduled 2022-04-24 INFLUENZA VACCINE (#1) [facility] 00:00[facility]00 [code = INFLUENZA Medical Ce nter VACCINE (#1)] Future Scheduled 2021-08-[address] [facility] Test 00:00:00 (12+) [code = Medical Center DEPRESSION SCREENING (12+)] Future Scheduled 2021-08-24 FALLS RISK SCREENING [facility] Test 00:00:00 [code = FALLS RISK Medical C enter SCREENING] Future Scheduled 2021-08-24 Medicare IPPE (WELCOME [facility] 00:00:00 TO MEDICARE) [code = Medical Center Medicare IPPE (WELCOME TO MEDICARE)] Future Scheduled 2012-11-[address] [facility] Test 00:00:00 aneurysm screening Medical C enter (procedure) [code = 409418191] Future Scheduled 1997-11-11 SHINGLES VACCINES ([address] [facility] Test 00:00:00 2) [code = SHINGLES Medical Center VACCINES (1 of 2)] Future Scheduled 1966-11-11 DTAP/TDAP/TD VACCINES [facility] Test 00:00:00 (1 - Tdap) [code = Medical C enter DTAP/TDAP/TD VACCINES (1 - Tdap)] Future Scheduled 1965-11-11 HEPATITIS C SCREENING [facility] Test 00:00:00 [code = HEPATITIS C Medical Center SCREENING] Future Scheduled [address] [facility] Test 00:00:00 Counseling and Medical Cente r Screening (12+) [code = Tobacco Cessation Counseling and Screening (12+)] Future Scheduled 1953-11-11 PNEUMOCOCCAL 65+ YRS ([address] [facility] Test 00:00:00 - PCV) [code = Medical Cente r PNEUMOCOCCAL 65+ YRS (1 - PCV)] Future Scheduled 1948-05-14 COVID-19 VACCINE (#1) [facility] Test 00:00:00 [code = COVID-[address] VACCINE (#1)] Future Scheduled 1947 CT Colonography (combo) [facility] Test 00:00:00 [code = CT Colonography [facility] (combo)] Future Scheduled 1945 Screening for malignant [facility] Test 00:00:00 neoplasm of colon Medical Ce nter (procedure) [code = 057766824] Future Scheduled 1947 Screening for malignant [facility] Test 00:00:00 neoplasm of colon Medical Ce nter (procedure) [code = 993796632] Future Scheduled 1947 Screening for malignant [facility] Test 00:00:00 neoplasm of colon Medical Ce nter (procedure) [code = 689661316] Future Scheduled 1947 Screening for malignant [facility] Test 00:00:00 neoplasm of colon Medical Ce nter (procedure) [code = 621037046] Future Scheduled 1945 Sigmoidoscopy [code = [facility] Test 00:00:00 Sigmoidoscopy] Medical Cente r Encounters Start End Encounter Admission Attending Care Care Encounter Source Date/Time Date/Time Type Type Clinicians Facility Department ID 2022-08-12 2022-08-12 [facility] [id number] 14:00:00 14:00:00 Encounter [facility] 2022-08-12 2022-08-12 Outpatient [facility] [id number] [facility] 00:00:00 00:00:00 [place] 2022-08-04 2022-08-04 [facility] [id number] 00:00:00 00:00:00 Orders [facility] 2022-07-27 2022-08-01 Inpatient ER J[facility] Surgery [id number] SLE 13:44:00 16:39:00 [facility] 2022-07-27 2022-08-01 Hospital Kimberli Woody [facility] [id number] 13:44:00 16:39:00 Encounter Can Wilder [facility] 2022-07-30 2022-07-30 Orders [facility] [id number] 00:00:00 00:00:00 Only [facility] 2022-07-27 2022-07-27 Outpatient [facility] [id number] [facility] 00:00:00 23:59:00 [place] 2022-07-27 2022-07-27 Travel [facility] [id number] [facility] 00:[facility]00 00:00:00 [facility] Results Test Description Test Time Test Comments Results Result Comments Source Anaerobic culture 2022-08-04 15:09:22 Test Item Value Reference Range Interpretation Comme nts Result (test code = 3+ Bacteroides species A * - Bacteroides 6463-4) ovatus/xylaniso lvens Lab Interpretation (test Abnormal code = 84482-9) [facility] [id number] 15:09:22 Test Item Value Reference Range Interpretation Comments CULTURE (BEAKER) (test A 3+ Ba cteroides species* - code = 1095) Bacteroides ovatus/xylaniso lvens BLOOD [id number] 17:00:35 Test Item Value Reference Range Interpretation Comments CULTURE (BEAKER) (test No growth in 5 days code = 1095) BLOOD [id number] 17:00:35 Test Item Value Reference Range Interpretation Comments CULTURE (BEAKER) (test No growth in 5 days code = 1095) POC-Glucose [id number] 13:06:08 Test Item Value Reference Range Interpretation Comments POC-Glucose Meter (test 104 mg/dL 70-110 : TE STED AT [facility] code = 1538) [address] [facility], 770 30: Rn Utilization Management Um/Techni arabella ID = [id number] for LAMONT ZAMAN Lab Interpretation (test Normal code = 76331-8) [facility] [id number] 13:06:08 Test Item Value Reference Range Interpretation Comments POC-GLUCOSE METER 104 mg/dL 70-110 : TESTED A T [facility] 6720 (BEAKER) (test code = [facility], 1538) [address]: Rn Utilization Management Um/Techni arabella ID = [id number] for Ce ZAMAN BODY FLUID CULTURE + GRAM [id number] 11:59:41 Test Item Value Reference Interpretation Comments Range CULTURE (BEAKER) (test KLEBSIELLA A 3+ Kl ebsiella code = 1095) PNEUMONIAE pneumoniae Amikacin (test code = S 1) Ampicillin + Sulbactam S (test code = 6) Aztreonam (test code = S 32) Cefepime (test code = S 51) Cefoxitin (test code = S 68) Ceftazidime (test code S = 27) Ceftriaxone (test code S = 52) Ertapenem (test code = S 38) Gentamicin (test code S = 18) Levofloxacin (test S code = 22) Meropenem (test code = S 34) Piperacillin + S Tazobactam (test code = 29) Tetracycline (test S code = 2) Tobramycin (test code S = 25) Trimethoprim + S Sulfamethoxazole (test code = 47) CULTURE (BEAKER) (test CITROBACTER A 3+ Ci trobacter code = 1095) FREUNDII freundii Amikacin (test code = S 1) Aztreonam (test code = S 32) Cefepime (test code = S 51) Cefoxitin (test code = R 68) Ceftazidime (test code S = 27) Ceftriaxone (test code S = 52) Ertapenem (test code = S 38) Gentamicin (test code S = 18) Levofloxacin (test S code = 22) Meropenem (test code = S 34) Nitrofurantoin (test S code = 23) Piperacillin + S Tazobactam (test code = 29) Tetracycline (test S code = 2) Tobramycin (test code S = 25) Trimethoprim + S Sulfamethoxazole (test code = 47) CULTURE (BEAKER) (test A 3+ Be ta-hemolytic code = 1095) streptococcus group C, by serological grouping CULTURE (BEAKER) (test A 3+ Vi ridans code = 1095) Streptococcus GRAM STAIN RESULT 2+ White blood (BEAKER) (test code = cells seen 1123) GRAM STAIN RESULT 2+ gram negative (BEAKER) (test code = rods 309473) GRAM STAIN RESULT 1+ gram positive (BEAKER) (test code = cocci in pairs 595000) POCT-GLUCOSE [id number] 09:14:07 Test Item Value Reference Range Interpretation Comments POC-GLUCOSE METER 111 mg/dL 70-110 H : [facility] (BEAKER) (test code = [place], 1538) [address]: Rn Utilization Management Um/Techni arabella ID = [id number] for Ce ZAMAN CBC W/PLT COUNT & AUTO [id number] 05:59:15 Test Item Value Reference Range Interpretation Comments WHITE BLOOD CELL COUNT (BEAKER) 12.3 K/ L 3.5-10.5 H (test code = 775) RED BLOOD CELL COUNT (BEAKER) 3.43 M/ L 4.63-6.08 L (test code = 761) HEMOGLOBIN (BEAKER) (test code = 10.3 GM/DL 13.7-17.5 L 410) HEMATOCRIT (BEAKER) (test code = 32.1 % 40.1-51.0 L 411) MEAN CORPUSCULAR VOLUME (BEAKER) 94 fL 79-92 H (test code = 753) MEAN CORPUSCULAR HEMOGLOBIN 30.0 pg 25.7-32.2 (BEAKER) (test code = 751) MEAN CORPUSCULAR HEMOGLOBIN CONC 32.1 GM/DL 32.3-36.5 L (BEAKER) (test code = 752) RED CELL DISTRIBUTION WIDTH 14.6 % 11.6-14.4 H (BEAKER) (test code = 412) PLATELET COUNT (BEAKER) (test 568 K/CU MM 150-450 H code = 756) MEAN PLATELET VOLUME (BEAKER) 9.1 fL 9.4-12.4 L (test code = 754) NUCLEATED RED BLOOD CELLS 0 /100 WBC 0-0 (BEAKER) (test code = 413) NEUTROPHILS RELATIVE PERCENT 79 % (BEAKER) (test code = 429) LYMPHOCYTES RELATIVE PERCENT 9 % (BEAKER) (test code = 430) MONOCYTES RELATIVE PERCENT 8 % (BEAKER) (test code = 431) EOSINOPHILS RELATIVE PERCENT 2 % (BEAKER) (test code = 432) BASOPHILS RELATIVE PERCENT 1 % (BEAKER) (test code = 437) NEUTROPHILS ABSOLUTE COUNT 9.75 K/ L 1.78-5.38 H (BEAKER) (test code = 670) LYMPHOCYTES ABSOLUTE COUNT 1.06 K/ L 1.32-3.57 L (BEAKER) (test code = 414) MONOCYTES ABSOLUTE COUNT (BEAKER) 0.94 K/ L 0.30-0.82 H (test code = 415) EOSINOPHILS ABSOLUTE COUNT 0.26 K/ L 0.04-0.54 (BEAKER) (test code = 416) BASOPHILS ABSOLUTE COUNT (BEAKER) 0.06 K/ L 0.01-0.08 (test code = 417) IMMATURE GRANULOCYTES-RELATIVE 1.90 % 0.00-1.00 H PERCENT (BEAKER) (test code = 2808) BASIC METABOLIC [id number] 05:43:26 Test Item Value Reference Range Interpretation Comments SODIUM (BEAKER) 135 meq/L 136-145 L (test code = 381) POTASSIUM 4.3 meq/L 3.5-5.1 (BEAKER) (test code = 379) CHLORIDE (BEAKER) 103 meq/L 98-107 (test code = 382) CO2 (BEAKER) 25 meq/L 22-29 (test code = 355) BLOOD UREA 17 mg/dL 7-21 NITROGEN (BEAKER) (test code = 354) CREATININE 0.89 mg/dL 0.57-1.25 (BEAKER) (test code = 358) GLUCOSE RANDOM 91 mg/dL 70-105 (BEAKER) (test code = 652) CALCIUM (BEAKER) 8.3 mg/dL 8.4-10.2 L (test code = 697) EGFR (BEAKER) 91 Interpretatio n of eGFR (test code = mL/min/1.73 values Stage De scription 1092) sq m Result G1 Norm al or high >=90 G2 Mildly decreased 60-89 G3a Mildl y to moderately 45-5 9 G3b Moderately to s everely 30-44 G4 Severl y decreased 15-29 G5 Kidney failure <15Reported eGF R is based on the CKD-EPI 2020 equation that d oes not use a race coefficientEsti mated GFR is not as accur ate as Creatinine Alvina barrera in predicting glom erular filtration rate . Estimated GFR is not appl icable for dialysis patien ts Rn Utilization Management Um ID - PIAYA LBASIC METABOLIC [id number] 06:55:16 Test Item Value Reference Range Interpretation Comments SODIUM (BEAKER) 135 meq/L 136-145 L (test code = 381) POTASSIUM 4.0 meq/L 3.5-5.1 (BEAKER) (test code = 379) CHLORIDE (BEAKER) 102 meq/L 98-107 (test code = 382) CO2 (BEAKER) 25 meq/L 22-29 (test code = 355) BLOOD UREA 18 mg/dL 7-21 NITROGEN (BEAKER) (test code = 354) CREATININE 0.89 mg/dL 0.57-1.25 (BEAKER) (test code = 358) GLUCOSE RANDOM 107 mg/dL 70-105 H (BEAKER) (test code = 652) CALCIUM (BEAKER) 8.2 mg/dL 8.4-10.2 L (test code = 697) EGFR (BEAKER) 91 Interpretatio n of eGFR (test code = mL/min/1.73 values Stage De scription 1092) sq m Result G1 Alexandra l or high >=90 G2 Mildly decreased 60-89 G3a Mildl y to moderately 45-5 9 G3b Moderately to s everely 30-44 G4 Severl y decreased 15-29 G5 Kidney failure <15Reported eGF R is based on the CKD-EPI 2020 equation that d oes not use a race coefficientEsti mated GFR is not as accur ate as Creatinine Alvina holly in predicting glom erular filtration rate . Estimated GFR is not appl icable for dialysis patien ts Rn Utilization Management Um ID - DARLENE [facility] W/PLT COUNT & AUTO [id number] 06:10:55 Test Item Value Reference Range Interpretation Comments WHITE BLOOD CELL COUNT (BEAKER) 14.8 K/ L 3.5-10.5 H (test code = 775) RED BLOOD CELL COUNT (BEAKER) 3.37 M/ L 4.63-6.08 L (test code = 761) HEMOGLOBIN (BEAKER) (test code = 10.1 GM/DL 13.7-17.5 L 410) HEMATOCRIT (BEAKER) (test code = 31.4 % 40.1-51.0 L 411) MEAN CORPUSCULAR VOLUME (BEAKER) 93 fL 79-92 H (test code = 753) MEAN CORPUSCULAR HEMOGLOBIN 30.0 pg 25.7-32.2 (BEAKER) (test code = 751) MEAN CORPUSCULAR HEMOGLOBIN CONC 32.2 GM/DL 32.3-36.5 L (BEAKER) (test code = 752) RED CELL DISTRIBUTION WIDTH 14.5 % 11.6-14.4 H (BEAKER) (test code = 412) PLATELET COUNT (BEAKER) (test 567 K/CU MM 150-450 H code = 756) MEAN PLATELET VOLUME (BEAKER) 9.2 fL 9.4-12.4 L (test code = 754) NUCLEATED RED BLOOD CELLS 0 /100 WBC 0-0 (BEAKER) (test code = 413) NEUTROPHILS RELATIVE PERCENT 84 % (BEAKER) (test code = 429) LYMPHOCYTES RELATIVE PERCENT 7 % (BEAKER) (test code = 430) MONOCYTES RELATIVE PERCENT 6 % (BEAKER) (test code = 431) EOSINOPHILS RELATIVE PERCENT 2 % (BEAKER) (test code = 432) BASOPHILS RELATIVE PERCENT 0 % (BEAKER) (test code = 437) NEUTROPHILS ABSOLUTE COUNT 12.39 K/ L 1.78-5.38 H (BEAKER) (test code = 670) LYMPHOCYTES ABSOLUTE COUNT 1.00 K/ L 1.32-3.57 L (BEAKER) (test code = 414) MONOCYTES ABSOLUTE COUNT (BEAKER) 0.88 K/ L 0.30-0.82 H (test code = 415) EOSINOPHILS ABSOLUTE COUNT 0.22 K/ L 0.04-0.54 (BEAKER) (test code = 416) BASOPHILS ABSOLUTE COUNT (BEAKER) 0.06 K/ L 0.01-0.08 (test code = 417) IMMATURE GRANULOCYTES-RELATIVE 1.80 % 0.00-1.00 H PERCENT (BEAKER) (test code = 2801) [id number] 06:06:57 Test Item Value Reference Range Interpretation Comments PARTIAL THROMBOPLASTIN TIME 98.1 seconds 22.5-36.0 H (BEAKER) (test code = 760) [id number] 00:50:04 Test Item Value Reference Range Interpretation Comments PARTIAL THROMBOPLASTIN TIME 71.1 seconds 22.5-36.0 H (BEAKER) (test code = 760) [id number] 19:13:14 Test Item Value Reference Range Interpretation Comments PARTIAL THROMBOPLASTIN TIME 57.0 seconds 22.5-36.0 H (BEAKER) (test code = 760) PET/CT, CARDIAC PERF REST AND [id number] 15:57:00Reason for exam:- >preoperative stress testing [facility] : 1945 Sex: MFINAL REPORT PROCEDURE: MYOCARDIAL PERFUSION PET/CT IMAGING (Rest/Stress)CPT CODE: 27085 INDICATION: Cardiovascular risk assessment prior to surgery CARDIOVASCULAR PROFILE:CAD History: Known CAD complicated by prior myocardial infarction status post PCISymptoms: NoneRisk Factors: Previous tobacco use, atrial fibrillationBMI: 24.9Medications: None STRESS PROTOCOL:Pharmacologic stress wasachieved with a 10-second intravenous infusion of regadenoson 0.4 mg. The radiopharmaceutical was administered 30 seconds after the start of the regadenoson infusion. IMAGING PROTOCOL:Limited low-dose CT imaging was performed for attenuation correction. 39.9 mCi of Rb-82 chloride was injected intravenously at rest, and gated PET images were obtained. Then, 40.0 mCi of Rb-82 chloride was injected intravenously at peak stress, and gated PET images were obtained. Image quality is good. REST FINDINGS:HR: 68/minBP: 116/63 mmHgPrelim. EKG: Sinus rhythm with second-degree AV block type I.Perfusion: Small,mild defect in the basal inferior segment.Wall Motion: Normal (LVEF 65%).LV Volume: Normal. STRESS FINDINGS:HR: 76/min (52% of MPHR)BP: 116/40 mmHgPrelim. EKG: Lateral T-wave inversions.Symptoms: None (treatment not required).Perfusion: Small, mild defect in the basal inferior segment.Wall Motion: Normal (LVEF >70%).LV Volume: Not significantly changed from rest. IMPRESSION:1. Probably abnormal study.2. Probably abnormal myocardial perfusion. There is a small size, mild severity, fixed perfusion abnormality in the basal inferior segment LV which could represent scar versus attenuation artifact.3. Normal resting LVEF, which does not deteriorate with pharmacologic stress.4. Normal extracardiac tracer distribution.5. There is no prior study for comparison.6.A 1.3 cm right upper lobe calcified granuloma. Signed: Suzanne Castellano MDReport Verified Date/Time: 07/30/2022 15:57:56 [id number] 15:42:01 Test Item Value Reference Range Interpretation Comments Case Report (test code Medical Cytology = 104) Report Case: [id number] Authorizing Provider: Can Wilder MD Collected: 07/29/2022 08:40 AM Ordering Location: [address] Received: 07/29/2022 02:01 PM Service Pathologist: Shayne Luke MD Specimen: MARK Drain DIAGNOSIS (test code = [id number] 3220) FuZzEwMzNcZnRuYmpcdWMx IHtccnRmMVxlcGljOTYwMl vevgQcRWLnjKKhV5Kbuyav CVozWR6cVC9elBazkLYnaX FxZISnAxGgr3tvy560rHWm t4sdUHFKbrkvsOl8pZhcQ8 9mm5O9UmafB90qcJCrTJZ3 LMHlQZWgpCYmFRYiHAI2MH ApwJKbA5zpNAPpFA5jdswr JEsuWIahVMOjuXD3NGNtiE XsQ9YgRETvQNqfWDKggyp9 ReYsKp0cgTPkpUjeGHleAK JkXHBsYWluXGZzMjAgSlAg MZASPW7nZfkBWSRvWNJXIR 1QILeQMaVAYnNtV9KMREGK SO0AFbk3GIKretLpPORcKZ 1BN7LUHWKWPREZDrBHSWpN C50CNtTeH6YFAWMkKRJkhv GuLLNnQSLCYsUNYG8OLIME WXNJTLIuLPHmyb31UYC3Ap Tlp6D8RDC9YXWdIIVnd5um ZGVmbGFuZzEwMzNcZnRuYm mugZTaBTKjZkCqa0psb939 nDPrq1ilFWYxGlG8zPJjQL ZphWQbH658HNSwTKczm7mz k1MpRMJzbPGcu3W4EQLOyj kvcUg2kYsqV35wd8B8Uwlb B1auJKOiSYJeK7FvUI7uFO FrWcy3MPX1AWE3NZEzAQAv J4ZqBQ7tVPQpeGBsXGc7t4 texFioTTUxFXJ0a9npOLsa gbNzCB9ekt0joMi6g1uhjy FhWJGjGZDhaGFZZQYaD3Ff sRvqTe1xcZr9nIpmJferRJ V4Zpk4SI5epj46yrz7dDmf GITtnjcjVgY5GUsqTKZjuy reGVi3CZvkYDXycYR9JZXt cIVrS7OjHYLlLL2utkj6NC H0EMzaAEUaWpI7FFPfxPLz XZWjpHypPIkgf058QBU5Jx TeNG5bR4Lkb6S1fR0slDYy EBThzPTcVyQmBXTpux7ieC AcHRrfs2OwQOP9kqT8sAGm tPHxXNDzQfP3ENyvOJ9zoh 90BJHoXHZ8lr0pnNDldMdc ibTesLYyFPduC3ZeAOKow5 08ARTiU9VuDKVxm2M4bgSc GfWbTLUthVJ9ieI3IARnII 1mqnyhz8jjLVwkPOphKNBa crQ5pdH6ARNscDLtH9RyuW 2mIYEfDZ7atsldc4jcXEO0 BCxoZIHsIHD1MyGxZKTbj9 Etrsj1OrHhw6EfoDVvUDnx J47fv241UJTxiiKzH4tqsN FpblxwbGFpblxmMFxmczI0 XHFsXGxhbmcxMDMzXGhpY2 gwCtFmAEEyxFzoAGyoo5Yl XGYxXGZzMjJcdGFiXHRhYl x7AZAtlXQgQQBlQxKhU0nb fsrtZrYXOQYol2soK9aaiU AKbDFwF8LcXRjxxdIkRMvy NBtrVxRrRXj7FI00KwFkIT Bhcn19 CPT Code(s) (test code g9cqyDJxRWJbtZM0VaRvPL = 3357) Ral6gmv7RutEAtzMEuFUey fRQqegHafi79xZJ7kY84EW 1dCQCiMjJ3OLLtraO6Ymu5 TFDdALIbxPEfE291y5cqp9 geerUvjTU8dVskEHAhgvmk YlK2YEywHEZilpqlOVn2ZW qkQXFoiND9EMLdrVSdW2Bg KUAlSS1gtnm0NUC6GKcmVX FsEkJ4MXKxyBLyILHqyUro EAysp359JEC9CkJzISDvdp KwfXagxZ7oHrOoPRS7EWUg OCwgODgzMDVccGFyfQ== CLINICAL DATA (test p6qguSBsWBWevIX1SbOrFZ code = 3355) Mew1cml2WquHFjwZEpJOxr nCWfidLniy74cXB5vL33HS 3cMZFrKmG6KNQecoT8Aew6 PIRpNJZdyGViT066z1kbe5 tunvNwlCL8kKnxVPVnkrvh GkO7YQiqXZCuywfsPKj0JC tdYEUorXM7PMXwiRTaN2Th SFGdAL2ktng1FNI7XQhhLG VhAkV1NVHreNZmMVHklMpd VHoew699CZR4InJvBGGuyr CwtAxdxW6dOwZrZLA6PXU7 Dt0qSHfxGZObe1miBQ4xdF WgdOSas1IteJmlRzH3kRRt PKDfbhTdbhI4VPOwKRl8PJ K7gQY7fXf3pUXmtrXpYJlY BZTdrX8wSH6st4AxzXmtnR BpcyBoZXJlIGZvciBkcmFp xnTdzLYhKD2ebqPqHUHlwQ dmC9VlY4VbQFOADB2yFUBs cn0= SPECIMEN SOURCE (test h0hqmHCqJQQwoPI4WwAbBV code = 3377) Hiu8bmr7HpnXBboITuKQpo uLYrigTbzl12pXM8fP07YN 9rIDXgDbH9VFOsroW1Aqt5 GPIcJESuvFCpN337j0mvg6 culvNhkKS6eTuzQBFqazfg WyT0NFqsWVXsbwtnZPv7KD zxHDOndTN5BUCxyKLoL5Cj EWLsLT9ceda9RQP8CVjrYJ YlIpS6JETeyDCyAJAvcKal KPiyo557LKB7RnVpJSTnzh RsdCdvbF0pIkVbKUYILDAX UkFJTiBGTFVJRFxwYXJ9 GROSS DESCRIPTION (test j2genFZlDSDbtGKDPMEfH5 code = [id number]) qvqjGfIVCpbLRlD5Uwxffo CRhoOW9rOO8bbYekoBMopV BxUS1YQFNhPuFeIQSuiSTf bvRcUxDaECYfsTZaiBP0EJ EjXS3zcfyhZPoeRJcrFMPf zkN7TVNlbDCeQ6OoRRLkSG 6mwypxOXZ2CKsehN0cieCN OzjpWs6zjAGyzAecYbOxQk NoYXJzZXQwXGZuaWwgQXJp VPz5dB3QHefcPJY7XYVAJl trZHImFP2Us1onJDQftTSu RUC8JHkfeUCcEXBgYRUqVX p2KPOdFPopuGNcDH9bhRwp QuilxTkdm1PybKJiUGxoWF ZcYKQtEIagGZYcZH8MAdJs PXQ7PhCmQUhdGNu8QEu6YD 3RDwMqTYNfISUyEbU4QwSo OTs7GJatGE1PDVQ3NxI2CN p4DVD5UUY7PcKgFSVjNnMf XGYgQXJpYWwgXFxmbCBcXG 5jfVxwbGFpbiBBLiBKUCBE yvGbel5tcBErSE1LHLHrpK XPWHN5CC5oWFLNYojoqTLt LEXhcIbkOCcrqE1uXT2ZTY c3odDbGVJlUiGuLlRaGTa6 JGYiLOOjcNolXqole7A3DA Zty5JzvJBfmSLhTJnnzGVv dRSuQRFdMLOjlWAgh4Ugsk BiZQ9oFRKdfDzmNsylA0nm QTIpKGNvbGxvZGlvbiBiYW fiMU0rxWkoZUDtjJyjGfxy A9uvp4IkUHAgyRIhRBvqXR Vjmm9veMwbPDG4XXE6DlF7 VR5vKKEuKaViGkBdNzqqTK IwJYjmsAewhD6nHDUqH43t l0GKs0PvNQQkHDmjj7yarU bvr2ZckLCiNLcmTGQxxVTp YCxueD4hSqVii3lywXa3XE qjjqG4GJXaql0NWjkraU8u YjZvy8tkcRw1OWTNHbqxer Y7v9uuuVyyx4UjzIYeRU4G Cn0= MICROSCOPIC DESCRIPTION k5pvnYCiLRSlpJY0HrXtSD (test code = 3371) Dme9tum0HgkTVtkGRxJIru eOJteqYvzr62kIA6gR13CB 9yQUBaVcH3YLYilcA3Gga3 JYIkCBWanGXqU179b1stz1 hnmbAghFA4nUfbJGXaumrn IiM4ZWdrZBLnfrpkVMh3YL gfBMIouHI9ZSJezEJqW4Uo ZOTtSL9fhpx9PFB1NCazGY FaHxS4ULZwoOBrMQAocFdx VOcof636DXF4GnRsLWPpow AlmHcocT1lOqLxWELPZOPq r9DlRGHlWIJcljjhJEGdVJ Bhcn0= STATEMENT OF ADEQUACY Satisfactory (test code = 2757) Gross assessment was [facility] performed at (test [facility], = 2777) Department of Pathology, [address] [place] [id number], Technical component was [facility] performed at ([facility], = 2778) Department of Pathology, [address] [place] [address], Professional component [facility] was performed at ([facility], code = 2779) Department of Pathology, [address] [place] [address], [facility] 15:42:01Medical Cytology Report Case: [id number] Authorizing Provider: Can Wilder MD Collected: 07/29/2022 08:40 AM Ordering Location: [address] Received: 07/29/2022 02:01 PM Service Pathologist: Shayne Luke MD Specimen: MARK Drain MARK DRAIN FLUID (CYTOSPINS AND CELL BLOCK): - NEGATIVE FOR MALIGNANT CELLS. - PURULENT EXUDATE. Signing Pathologist Direct Phone Line: [phone] signed by Shayne Luke MD on 07/30/2022 at 3:42 [id number], [id number] y.o. year old male presenting with perforated diverticulitis vs LLQ colon mass that is here for drain placement. pmhX OF cad, HTN.MARK DRAIN FLUIDA. MARK Drain.Received 10 ml bloody cloudy fluid; prepared 4 cytospins and cell block(A2)(collodion bag) - the cell block was fixed in formalin at 14:45 on 07/29/2022erformed.[facility], [facility] of [facility]ology, [address] [place] [address], [facility], [facility] of [facility]ology, [address] [place] [address], [facility], Department of Pathology, [address] [place] [address], WFJG 2022-07-30 12:47:04 Test Item Value Reference Range Interpretation Comments PARTIAL THROMBOPLASTIN TIME 82.3 seconds 22.5-36.0 H (MICHAEL) (test code = 760) U/S, DRAINAGE, W/ CATH [id number] 09:49:00Reason for exam:- >Perforated diverticulitis vs colon mass LLQ [facility] 1945 Sex: MFINAL REPORT U/S, DRAINAGE, W/ CATH PLACEMENT History: Perforated diverticulitis vs colon mass LLQ Modality: Sonography Sedation: Versed 0.5 mg and fentanyl 25 mcg was given intravenously for conscious sedation. Vital signs were monitored throughout the procedure by a nurse, and remained stable. Physician intra-service time was 30 minutes. Post Commander: Can Ren MD. Cable Television Line Technician:None. Estimated blood loss: < 5 cc. Specimen: Approximately 5 cc of purulent fluid. Technique: Informed written consent was obtained. Discussion of risks, benefits, and alternatives were made with the patient. The patient expressed understanding and agreed to proceed. A universal timeout was performed prior to starting the procedure. All elements maximal sterile barrier technique was utilized forthis procedure, including utilization of sterile scrub solution for skin prep, a large sterile sheetto cover the areas of the patient that were not prepped, and hand hygiene, mask, head covering, and sterile gown for performing radiologist and scrub technologist. Local anesthesia was administered. Under ultrasound guidance, a one-step needle was advanced into the fluid collection. A short wire was placed through the needle. The tract was serially dilated. A 10 Welsh catheter was placed over the wire into the fluid collection. The wire was then removed, and the pigtail of the catheter was locked. The catheter was then secured onto the skin with suture. A sterile dressing was applied. The patient tolerated the procedure well, without immediate complications. The patient's vital signs remained stable throughout the procedure. Impression: Successful placement of 10 Welsh drainage catheter into left lower quadrant fluid collection. Signed: Can Ren MDReport Verified Date/Time: 07/30/2022 09:49:50 Reading Location: [place] [id number] Angio Body Reading Room Electronically signed by: Trent DEMPSEY 07/30/2022 09:49 AM BASIC METABOLIC [id number] 05:46:35 Test Item Value Reference Range Interpretation Comments SODIUM (BEAKER) 134 meq/L 136-145 L (test code = 381) POTASSIUM 4.2 meq/L 3.5-5.1 (BEAKER) (test code = 379) CHLORIDE (BEAKER) 103 meq/L 98-107 (test code = 382) CO2 (BEAKER) 25 meq/L 22-29 (test code = 355) BLOOD UREA 20 mg/dL 7-21 NITROGEN (BEAKER) (test code = 354) CREATININE 1.05 mg/dL 0.57-1.25 (BEAKER) (test code = 358) GLUCOSE RANDOM 94 mg/dL 70-105 (BEAKER) (test code = 652) CALCIUM (BEAKER) 8.1 mg/dL 8.4-10.2 L (test code = 697) EGFR (BEAKER) 75 Interpretatio n of eGFR (test code = mL/min/1.73 values Stage De scription 1092) sq m Result G1 Alexandra l or high >=90 G2 Mildly decreased 60-89 G3a Mildl y to moderately 45-5 9 G3b Moderately to s everely 30-44 G4 Severl y decreased 15-29 G5 Kidne y failure <15Reported eGF R is based on the CKD-EPI 2021 equation that d oes not use a race coefficientEsti mated GFR is not as accur ate as Creatinine Alvina barrera in predicting glom erular filtration rate . Estimated GFR is not appl icable for dialysis patien ts Rn Utilization Management Um ID - DARLENE MVANCOMYCIN LEVEL, [id number] 05:40:10 Test Item Value Reference Range Interpretation Comments VANCOMYCIN TROUGH (BEAKER) (test 10.6 ug/mL 10.0-20.0 code = 522) Rn Utilization Management Um ID - DARLENE MCBC W/PLT COUNT & AUTO [id number] 05:37:56 Test Item Value Reference Range Interpretation Comments WHITE BLOOD CELL COUNT (BEAKER) 14.9 K/ L 3.5-10.5 H (test code = 775) RED BLOOD CELL COUNT (BEAKER) 3.20 M/ L 4.63-6.08 L (test code = 761) HEMOGLOBIN (BEAKER) (test code = 9.4 GM/DL 13.7-17.5 L 410) HEMATOCRIT (BEAKER) (test code = 29.8 % 40.1-51.0 L 411) MEAN CORPUSCULAR VOLUME (BEAKER) 93 fL 79-92 H (test code = 753) MEAN CORPUSCULAR HEMOGLOBIN 29.4 pg 25.7-32.2 (BEAKER) (test code = 751) MEAN CORPUSCULAR HEMOGLOBIN CONC 31.5 GM/DL 32.3-36.5 L (BEAKER) (test code = 752) RED CELL DISTRIBUTION WIDTH 14.3 % 11.6-14.4 (BEAKER) (test code = 412) PLATELET COUNT (BEAKER) (test 522 K/CU MM 150-450 H code = 756) MEAN PLATELET VOLUME (BEAKER) 9.3 fL 9.4-12.4 L (test code = 754) NUCLEATED RED BLOOD CELLS 0 /100 WBC 0-0 (BEAKER) (test code = 413) NEUTROPHILS RELATIVE PERCENT 84 % (BEAKER) (test code = 429) LYMPHOCYTES RELATIVE PERCENT 6 % (BEAKER) (test code = 430) MONOCYTES RELATIVE PERCENT 6 % (BEAKER) (test code = 431) EOSINOPHILS RELATIVE PERCENT 2 % (BEAKER) (test code = 432) BASOPHILS RELATIVE PERCENT 0 % (BEAKER) (test code = 437) NEUTROPHILS ABSOLUTE COUNT 12.47 K/ L 1.78-5.38 H (BEAKER) (test code = 670) LYMPHOCYTES ABSOLUTE COUNT 0.95 K/ L 1.32-3.57 L (BEAKER) (test code = 414) MONOCYTES ABSOLUTE COUNT (BEAKER) 0.90 K/ L 0.30-0.82 H (test code = 415) EOSINOPHILS ABSOLUTE COUNT 0.30 K/ L 0.04-0.54 (BEAKER) (test code = 416) BASOPHILS ABSOLUTE COUNT (BEAKER) 0.05 K/ L 0.01-0.08 (test code = 417) IMMATURE GRANULOCYTES-RELATIVE 1.30 % 0.00-1.00 H PERCENT (BEAKER) (test code = 2801) [id number] 01:59:39 Test Item Value Reference Range Interpretation Comments PARTIAL THROMBOPLASTIN TIME 54.6 seconds 22.5-36.0 H (BEAKER) (test code = 760) [id number] 23:03:36 Test Item Value Reference Range Interpretation Comments PARTIAL THROMBOPLASTIN TIME 132.5 seconds 22.5-36.0 H (BEAKER) (test code = 760) [id number] 13:24:09 Test Item Value Reference Range Interpretation Comments PARTIAL THROMBOPLASTIN TIME 38.5 seconds 22.5-36.0 H (BEAKER) (test code = 760) CBC (HEMOGRAM ONLY)2022-07-29 06:00:03 Test Item Value Reference Range Interpretation Comments WHITE BLOOD CELL COUNT (BEAKER) 17.9 K/ L 3.5-10.5 H (test code = 775) RED BLOOD CELL COUNT (BEAKER) 3.27 M/ L 4.63-6.08 L (test code = 761) HEMOGLOBIN (BEAKER) (test code = 9.9 GM/DL 13.7-17.5 L 410) HEMATOCRIT (BEAKER) (test code = 31.3 % 40.1-51.0 L 411) MEAN CORPUSCULAR VOLUME (BEAKER) 96 fL 79-92 H (test code = 753) MEAN CORPUSCULAR HEMOGLOBIN 30.3 pg 25.7-32.2 (BEAKER) (test code = 751) MEAN CORPUSCULAR HEMOGLOBIN CONC 31.6 GM/DL 32.3-36.5 L (BEAKER) (test code = 752) RED CELL DISTRIBUTION WIDTH 14.4 % 11.6-14.4 (BEAKER) (test code = 412) PLATELET COUNT (BEAKER) (test 491 K/CU MM 150-450 H code = 756) MEAN PLATELET VOLUME (BEAKER) 9.7 fL 9.4-12.4 (test code = 754) NUCLEATED RED BLOOD CELLS 0 /100 WBC 0-0 (BEAKER) (test code = 413) SARS-CoV2/RT-PCR (Asymptomatic ONLY)2022-07-29 04:42:39 Test Item Value Reference Interpretation Comments Range SARS-COV2/RT-PCR Negative Negative The SARS-Co V-2 (test code = target nucleic 53077-0) acids are not detected in thi s specimen. Negat maximus results do not preclude SARS-C oV-2 infection and should not be u sed as the sole bas is for patient management decisions. Nega tive results must be combined with clinical observations, patient history , and epidemiolog ical information. A false negative result may occu r if a specimen is improperly collected, transported or handled. This S ARS CoV-2 test is a rapid, real-netta e RT-PCR test intended for th e qualitative detection of nucleic acid fr om SARS-CoV-2 in a nasopharyngeal swab specimen collec karla from individual s suspected of COVID-19 by the ir healthcare provider. AUGUSTO (test code = This test has been AUGUSTO) authorized by FDA under an EUA for use by authorized laboratories. This test is only authorized for the duration of the declaration that circumstances exist justifying the authorization of emergency use of in vitro diagnostic tests for detection and/or diagnosis of COVID-19 under Section 564(b)(1) of the Federal Food, Drug and Cosmetic Act, 21 U.S.C. 360bbb-3(b)(1), unless the authorization is terminated or revoked sooner. Fact Sheet for Healthcare Providers: https://www.Trulioo/Documents/Xp ert%20Xpress%20SAR S%20CoV-2/Fact%20S heets/3023802%20S ARS-COV-2%20HEALTH CARE%20PROVIDERS%2 0FACT%20SHEET.pdf Fact Sheet for Healthcare Patients: https://www.Trul[employer]o/Documents/Xp ert%20Xpress%20SAR S%20CoV-2/Fact%20S heets/3023801%20S ARS-COV-2%20PATIEN T%20FACT%20SHEET.p df Lab Interpretation Normal (test code = 94379-8) [facility]2022-07-29 04:42:39 Test Item Value Reference Range Interpretation Comments SARS-COV2/RT-PCR Negative Negative The SARS-Co V-2 target (test code = nucleic acids a re not 9216917) detected in thi s specimen. Negative result s do not preclude SARS-C oV-2 infection and s hould not be used as the eber e basis for patient managem ent decisions. Nega tive results must be combine d with clinical observ ations, patient history , and epidemiological information. A false negativ e result may occur if a spec imen is improperly raiza ected, transported or handled. This SARS CoV-2 test is a rapid, real-time RT-PC R test intended for th e qualitative detection of nu cleic acid from SARS-CoV-2 in a nasopharyngeal swab specimen collected from individuals suspected of CO VID-19 by their healthcar e provider. This test has been authorized by FDA under an EUA for use by authorized laboratories. This test is only authorized for the duration of the declaration that circumstances exist justifying the authorization of emergency use of in vitro diagnostic tests for detection and/or diagnosis of COVID-19 under Section 564(b)(1) of the Federal Food, Drug and Cosmetic Act, 21 U.S.C. 360bbb-3(b)(1), unless the authorization is terminated or revoked sooner. Fact Sheet for Healthcare Providers: https://www.Socialcast.[employer] m/Documents/Xpert%20Xpress%20SARS%20CoV-2/Fact%20Sheets/302-4812%71VKSC-TGL-7%20 HEALTHCARE%20PROVIDERS%20FACT%20SHEET.pdf Fact Sheet for Healthcare Patients: https://www.Embedly/Documents/Xpert%20Xp ress%20SARS%20CoV-2/Fact%20Sheets/302-3971%72KGIK-WQB-2%20PATIENT%20FACT%20SHEET .[id number] 22:05:04 Test Item Value Reference Range Interpretation Comments PROCALCITONIN (BEAKER) (test code 0.41 ng/mL <0.05 H = 3036) SEPSIS RISK (ng/mL)Low: 0.05-0.50Intermediate: 0.51-2.00High: >=2.01APTT 2022-07-28 21:36:37 Test Item Value Reference Range Interpretation Comments PARTIAL THROMBOPLASTIN TIME 37.2 seconds 22.5-36.0 H (BEAKER) (test code = 760) LACTIC ACID, [id number] 21:27:55 Test Item Value Reference Range Interpretation Comments LACTATE BLOOD VENOUS 1.52 mmol/L 0.50-2.20 Specime n slightly (2) (BEAKER) (test hemolyzed code = 2872) Rn Utilization Management Um ID - [id number] Echo W/Doppler(CW/PW/Color)2022-07-28 16:50:54Ejection FractionSLE ECHO HEARTLAB MKCKESSON [facility] CARCINOEMBRYONIC ANTIGEN (CEA)2022-07-28 16:08:54 Test Item Value Reference Range Interpretation Comments CARCINOEMBRYONIC ANTIGEN (BEAKER) 1.8 ng/mL 0.0-5.0 (test code = 685) Rn Utilization Management Um ID - EMMANUELLACTIC ACID, [id number] 15:44:26 Test Item Value Reference Range Interpretation Comments LACTATE BLOOD VENOUS 5.61 mmol/L 0.50-2.20 HH Specime n slightly (2) (BEAKER) (test hemolyzed code = 2872) Rn Utilization Management Um ID - [id number] 09:37:08 Test Item Value Reference Range Interpretation Comments PARTIAL THROMBOPLASTIN TIME 47.0 seconds 22.5-36.0 H (BEAKER) (test code = 760) [id number] 02:36:35 Test Item Value Reference Range Interpretation Comments PARTIAL THROMBOPLASTIN TIME 40.5 seconds 22.5-36.0 H (BEAKER) (test code = 760) PROTHROMBIN TIME/[id number] 02:35:34 Test Item Value Reference Range Interpretation Comments PROTIME (BEAKER) 16.7 seconds 11.9-14.2 H (test code = 759) INR (BEAKER) (test 1.39 See_Comment [Automat ed message] code = 370) The system [employer] generated this result transmitted ref erence range: <=5.90. The reference range was not used to int erpret this result as normal/abnormal . RECOMMENDED COUMADIN/WARFARIN INR THERAPY RANGESSTANDARD DOSE: 2.0 - 3.0 Includes: PROPHYLAXIS for venous thrombosis, systemic embolization; TREATMENT for venous thrombosis and/or pulmonary embolus.HIGH RISK: Target INR is 2.5-3.5 for patients with mechanical heart valves.COMPREHENSIVE METABOLIC PANEL 2022-07-28 02:25:33 Test Item Value Reference Range Interpretation Comments TOTAL PROTEIN 6.2 gm/dL 6.0-8.3 (BEAKER) (test code = 770) ALBUMIN (BEAKER) 2.5 g/dL 3.5-5.0 L (test code = 1145) ALKALINE 109 U/L 40-150 PHOSPHATASE (BEAKER) (test code = 346) BILIRUBIN TOTAL 0.6 mg/dL 0.2-1.2 (BEAKER) (test code = 377) SODIUM (BEAKER) 132 meq/L 136-145 L (test code = 381) POTASSIUM (BEAKER) 4.0 meq/L 3.5-5.1 (test code = 379) CHLORIDE (BEAKER) 99 meq/L 98-107 (test code = 382) CO2 (BEAKER) (test 23 meq/L 22-29 code = 355) BLOOD UREA 23 mg/dL 7-21 H NITROGEN (BEAKER) (test code = 354) CREATININE 1.04 mg/dL 0.57-1.25 (BEAKER) (test code = 358) GLUCOSE RANDOM 107 mg/dL 70-105 H (BEAKER) (test code = 652) CALCIUM (BEAKER) 8.7 mg/dL 8.4-10.2 (test code = 697) AST (SGOT) 29 U/L 5-34 (BEAKER) (test code = 353) ALT (SGPT) 31 U/L 6-55 (BEAKER) (test code = 347) EGFR (BEAKER) 76 Interpretatio n of eGFR (test code = 1092) mL/min/1.[address] age Description sq m Result G1 Alexandra l or high >=90 G2 Mildly decreased 60-89 G3a Mildl y to moderately 45-5 9 G3b Moderately to s everely 30-44 G4 Severl y decreased 15-29 G5 Kidney failure <15Reported eGF R is based on the CKD-EPI 2020 equation that d oes not use a race coefficientEsti mated GFR is not as accur ate as Creatinine Alvina barrera in predicting glom erular filtration rate . Estimated GFR is not appl icable for dialysis patien ts Rn Utilization Management Um ID - [id number] 02:25:33 Test Item Value Reference Range Interpretation Comments MAGNESIUM (BEAKER) (test code = 2.2 mg/dL 1.6-2.6 627) Rn Utilization Management Um ID - [id number] 02:25:33 Test Item Value Reference Range Interpretation Comments PHOSPHORUS (BEAKER) (test code = 4.4 mg/dL 2.3-4.7 604) Rn Utilization Management Um ID - ALFREDACBC (HEMOGRAM ONLY)2022-07-28 02:13:25 Test Item Value Reference Range Interpretation Comments WHITE BLOOD CELL COUNT (BEAKER) 18.9 K/ L 3.5-10.5 H (test code = 775) RED BLOOD CELL COUNT (BEAKER) 3.89 M/ L 4.63-6.08 L (test code = 761) HEMOGLOBIN (BEAKER) (test code = 12.0 GM/DL 13.7-17.5 L 410) HEMATOCRIT (BEAKER) (test code = 36.0 % 40.1-51.0 L 411) MEAN CORPUSCULAR VOLUME (BEAKER) 93 fL 79-92 H (test code = 753) MEAN CORPUSCULAR HEMOGLOBIN 30.8 pg 25.7-32.2 (BEAKER) (test code = 751) MEAN CORPUSCULAR HEMOGLOBIN CONC 33.3 GM/DL 32.3-36.5 (BEAKER) (test code = 752) RED CELL DISTRIBUTION WIDTH 14.2 % 11.6-14.4 (BEAKER) (test code = 412) PLATELET COUNT (BEAKER) (test 582 K/CU MM 150-450 H code = 756) MEAN PLATELET VOLUME (BEAKER) 9.2 fL 9.4-12.4 L (test code = 754) NUCLEATED RED BLOOD CELLS 0 /100 WBC 0-0 (BEAKER) (test code = 413) Sodium, random [id number] 19:58:05 Test Item Value Reference Range Interpretation Comments Sodium Urine (test 67 meq/L code = 2955-3) AUGUTSO (test code = Reference Range: No AUGUSTO) NormalsOperator ID - [facility]EDA [facility] [id number] 19:58:05 Test Item Value Reference Range Interpretation Comments SODIUM URINE (BEAKER) (test code = 67 meq/L 243) Reference Range: No NormalsOperator ID - ALFREDAOsmolality, [id number] 19:51:13 Test Item Value Reference Range Interpretation Comments Osmolality, Ur (test code 396 See_Comment [ Automated message] = 2695-5) The system [employer] h generated this result transmitted ref erence range: 50-1,200 mOsm/kg mOsm/kg . The reference range was not used to int erpret this result as normal/abnormal . Lab Interpretation (test Normal code = 59865-0) [facility] [id number] 19:51:13 Test Item Value Reference Range Interpretation Comments OSMOLALITY URINE 396 mOsm/kg See_Comment [Automated message] (BEAKER) (test code = The sy stem which 614) generated this result transmitted ref erence range: 50-1,200 mOsm/kg. The reference range was not used to int erpret this result as normal/abnormal . LACTIC ACID, [id number] 19:10:00 Test Item Value Reference Range Interpretation Comments LACTATE BLOOD VENOUS 2.66 mmol/L 0.50-2.20 H Specime n slightly (2) (BEAKER) (test hemolyzed code = 2872) Rn Utilization Management Um ID - ALFREDAT4, [id number] 18:26:56 Test Item Value Reference Range Interpretation Comments FREE T4 (BEAKER) (test code = 655) 0.99 ng/dL 0.70-1.48 Rn Utilization Management Um ID - ALFRDEAPLATELET [id number] 18:20:40 Test Item Value Reference Range Interpretation Comments PLATELET COUNT (BEAKER) (test 595 K/CU MM 150-450 H code = 756) TSH/FREE T4 IF [id number] 17:44:56 Test Item Value Reference Range Interpretation Comments THYROID STIMULATING HORMONE 6.253 uIU/mL 0.350-4.940 H (BEAKER) (test code = 772) Rn Utilization Management Um ID - [id number] (HEMOGRAM ONLY)2022-07-27 17:44:49 Test Item Value Reference Range Interpretation Comments WHITE BLOOD CELL COUNT (BEAKER) 23.1 K/ L 3.5-10.5 H (test code = 775) RED BLOOD CELL COUNT (BEAKER) 3.84 M/ L 4.63-6.08 L (test code = 761) HEMOGLOBIN (BEAKER) (test code = 11.7 GM/DL 13.7-17.5 L 410) HEMATOCRIT (BEAKER) (test code = 36.0 % 40.1-51.0 L 411) MEAN CORPUSCULAR VOLUME (BEAKER) 94 fL 79-92 H (test code = 753) MEAN CORPUSCULAR HEMOGLOBIN 30.5 pg 25.7-32.2 (BEAKER) (test code = 751) MEAN CORPUSCULAR HEMOGLOBIN CONC 32.5 GM/DL 32.3-36.5 (BEAKER) (test code = 752) RED CELL DISTRIBUTION WIDTH 13.7 % 11.6-14.4 (BEAKER) (test code = 412) PLATELET COUNT (BEAKER) (test 607 K/CU MM 150-450 H code = 756) MEAN PLATELET VOLUME (BEAKER) 9.4 fL 9.4-12.4 (test code = 754) [id number] 17:40:08 Test Item Value Reference Range Interpretation Comments PARTIAL THROMBOPLASTIN TIME 35.3 seconds 22.5-36.0 (BEAKER) (test code = 760) HIGH SENSITIVITY TROPONIN [id number] 17:03:17 Test Item Value Reference Range Interpretation Comments HIGH SENSITIVITY 8 pg/ml See_Comment [Automated message] TROPONIN I (test code = The system which [id number]) generated this result transmitted ref erence range: <=35. Th e reference range was not used to interpr et this result as normal/abnormal . Rn Utilization Management Um ID - ALFREDAThe CRUSHER ASSEMBLER STAT High Sensitivity Troponin-I results should be used in conjunction with other diagnostic information such as ECG, clinical observations and information, and patient symptoms to aid in the diagnosis of CT.[id number] 16:53:57 Test Item Value Reference Range Interpretation Comments MAGNESIUM (BEAKER) (test code = 2.1 mg/dL 1.6-2.6 627) Rn Utilization Management Um ID - [id number] 16:53:57 Test Item Value Reference Range Interpretation Comments PHOSPHORUS (BEAKER) (test code = 4.9 mg/dL 2.3-4.7 H 604) Rn Utilization Management Um ID - LAFREDACOMPREHENSIVE METABOLIC [id number] 16:53:56 Test Item Value Reference Range Interpretation Comments TOTAL PROTEIN 6.6 gm/dL 6.0-8.3 (BEAKER) (test code = 770) ALBUMIN (BEAKER) 2.6 g/dL 3.5-5.0 L (test code = 1145) ALKALINE 115 U/L 40-150 PHOSPHATASE (BEAKER) (test code = 346) BILIRUBIN TOTAL 0.8 mg/dL 0.2-1.2 (BEAKER) (test code = 377) SODIUM (BEAKER) 131 meq/L 136-145 L (test code = 381) POTASSIUM (BEAKER) 4.1 meq/L 3.5-5.1 (test code = 379) CHLORIDE (BEAKER) 99 meq/L 98-107 (test code = 382) CO2 (BEAKER) (test 23 meq/L 22-29 code = 355) BLOOD UREA 22 mg/dL 7-21 H NITROGEN (BEAKER) (test code = 354) CREATININE 0.99 mg/dL 0.57-1.25 (BEAKER) (test code = 358) GLUCOSE RANDOM 120 mg/dL 70-105 H (BEAKER) (test code = 652) CALCIUM (BEAKER) 8.6 mg/dL 8.4-10.2 (test code = 697) AST (SGOT) 31 U/L 5-34 (BEAKER) (test code = 353) ALT (SGPT) 33 U/L 6-55 (BEAKER) (test code = 347) EGFR (BEAKER) 81 Interpretatio n of eGFR (test code = 1092) mL/min/1.[address] age Description sq m Result G1 Alexandra l or high >=90 G2 Mildly decreased 60-89 G3a Mildl y to moderately 45-5 9 G3b Moderately to s everely 30-44 G4 Severl y decreased 15-29 G5 Kidney failure <15Reported eGF R is based on the CKD-EPI 2020 equation that d oes not use a race coefficientEsti mated GFR is not as accur ate as Creatinine Alvina barrera in predicting glom erular filtration rate . Estimated GFR is not appl icable for dialysis patien ts Rn Utilization Management Um SABA AGNT
[2022-08-24] MEDS ORDERED: NA CHLORIDE 0.9% 100 ML IV ONE ×2 (14:39→17:51)
[2022-08-24] MEDS ORDERED: HYDROMORPHONE HCL 1 MG/ML INJ ONE (14:39)
[2022-08-24] MEDS ORDERED: ONDANSETRON 4 MG/2 ML VIAL ONE ×2 (14:55→19:53)
[2022-08-24] MEDS ORDERED: MORPHINE 4 MG/ML SYR ONE (14:55)
[2022-08-24 15:03] LABS: Absolute Lymphocytes (CBC) 0.6 K/uL (0.7-4.9); Lymphocytes % 3.5 % (15.3-44.8); MPV 6.7 fL (7.6-11.3); RBC Red Blood Cell Count 3.87 M/uL (4.33-5.43)
[2022-08-24 15:20] LABS: Albumin 2.7 g/dL (3.4-5.0); Bilirubin Total 0.7 mg/dL (0.2-1.0); Protein, Total 7.9 g/dL (6.4-8.2)
--- NOTE | 2022-08-24 17:11 | RAD REPORT ---
EXAM DESCRIPTION: CT - Abdomen Pelvis W Contrast - 08/24/2022 4:23 pm CLINICAL HISTORY: recent bowel perforation, s/p drain, pain worse COMPARISON: Abdomen Pelvis W Contrast dated 07/27/2022 TECHNIQUE: Biphasic, helical CT imaging of the abdomen and pelvis was performed following 100 ml non -ionic IV contrast. Oral contrast: No. All CT scans are performed using dose optimization technique as appropriate and may include automated exposure control or mA/KV adjustment according to patient size. FINDINGS: No suspicious findings in the lung bases. The liver, spleen, and pancreas show no suspicious findings. Liver attenuation is fatty infiltrated. No portal vein abnormality. Gallbladder and biliary tree are also without suspicious finding. Symmetric renal function is seen with no hydronephrosis or suspicious renal mass. No pyelonephritis o r acute parenchymal process. Patient multiple bilateral simple renal cysts. Partially filled urinary bladder shows no suspicious finding. No adrenal abnormalities. No stomach or small bowel acute findings. No appendicitis. Moderate stool volume present in the colon from cecum to the mid descending colon. There is prominent circumferential wall thickening at the de scending colon- sigmoid colon junction. This is the same area of bowel involved in the July 27 rodrigo ging. This could be persistent or recurrent colitis or diverticulitis. There is a masslike appearance and a colon malignancy is a primary consideration. In the deep layer of the oblique musculature lat eral to the involved colon there is a 3.3 x 2.4 centimeter air and fluid collection. This is reduced from the July 27 imaging. Along the anterior superior margin of the colon there is a 4 centimeter a amorphous area of air and stranding. This is probably part of the colon perforation process that oc curred previously. This has a phlegmonous appearance and is not a drainable fluid collection. No intraperitoneal free air or pneumatosis. No suspicious bony findings. IMPRESSION: There remains a masslike appearance to the colon at the descending - sigmoid junction. C ircumferential wall thickening and luminal narrowing are present. A colon malignancy is a primary con sideration. Persistent or recurrent colitis or diverticulitis are possible though the patient has ve ry little diverticulosis. A 4 centimeter phlegmonous collection is present along the anterior superior margin of the involved c olon within the peritoneal tissues. This is not a drainable fluid collection. A 3.3 x 2.4 centimeter air in fluid collection is present in the deep layer of the oblique musculatur e lateral to the involved colon. This has reduced in size since the July 27 imaging.
--- NOTE | 2022-08-24 17:21 | ER ---
Nurse's Notes [facility] Name: Martinez Nye Age: 76 yrs Sex: Male : 1945 Arrival Date: 08/24/2022 Time: 14:26 Bed 8 Private MD: Diagnosis: Left sided colitis-With phlegmon;Mass of colon Presentation: 08/24 14:30 Chief complaint: Patient states: pain in the LLQ of the abdomen, had a tube removed a kr3 few days ago and now I have pain worse than I ever had before. Coronavirus screen: Vaccine status: Patient reports being unvaccinated. Client denies travel out of the [place] in the last 14 days. Ebola Screen: Patient denies travel to an Ebola-affected area in the 21 days before illness onset. Initial Sepsis Screen: Does the patient meet any 2 criteria? No. Patient's initial sepsis screen is negative. Does the patient have a suspected source of infection? No. Patient's initial sepsis screen is negative. Risk Assessment: Do you want to hurt yourself or someone else? Patient reports no desire to harm self or others. Onset of symptoms was August 22, 2022. 14:30 Method Of Arrival: Wheelchair kr3 14:30 Acuity: QUENTIN 3 kr3 Triage Assessment: 14:38 General: Appears in no apparent distress. uncomfortable, Behavior is calm, cooperative, kr3 appropriate for age. Pain: Complains of pain in abdomen. Historical: - Allergies: 14:36 No Known Allergies; kr3 - PMHx: 14:36 Myocardial infarction; kr3 - PSHx: 14:36 cardiac stents; kr3 - Immunization history:: Adult Immunizations not up to date. - Social history:: Smoking status: Patient reports the use of cigarette tobacco products, smokes 1.5 packs per day. - Family history:: not pertinent. - Hospitalizations: : Patient was recently seen at. Screenin:01 [facility] ED Fall Risk Assessment (Adult) History of falling in the last 3 months, jl7 including since admission No falls in past 3 months (0 pts). Abuse screen: Denies threats or abuse. Denies injuries from another. Nutritional screening: No deficits noted. Tuberculosis screening: No symptoms or risk factors identified. Assessment: 15:00 General: Appears in no apparent distress. uncomfortable, Behavior is calm, cooperative, jl7 appropriate for age. Pain: Complains of pain in left lower quadrant Pain currently is 8 out of 10 on a pain scale. Pain began 2-3 days ago. 15:54 General: Appears in no apparent distress. Behavior is calm, cooperative. Neuro: Level hb of Consciousness is awake, alert, obeys commands, Oriented to person, place, time, situation. Cardiovascular: Patient's skin is warm and dry. Respiratory: Respiratory effort is even, unlabored, Respiratory pattern is regular, symmetrical. GI: Reports lower abdominal pain. : No signs and/or symptoms were reported regarding the genitourinary system. EENT: No signs and/or symptoms were reported regarding the EENT system. Derm: Skin is pink, warm \T\ dry. Musculoskeletal: No signs and/or symptoms reported regarding the musculoskeletal system. 18:12 Reassessment: Patient appears in no apparent distress at this time. Patient and/or hb family updated on plan of care and expected duration. Pain level reassessed. Patient is alert/active/playful, equal unlabored respirations, skin warm/dry/pink. 19:44 Reassessment: Patient is alert, oriented x 3, equal unlabored respirations, skin bb warm/dry/pink. pt states he is still having abdominal pain Dr Smart notified new orders received see OCT. Report called to Joe HUOSE at [facility] for room 1518. EMS in route. IV site intact, no erythema or edema noted. Vital Signs: 14:30 BP 111 / 43; Pulse 85; Resp 18; Temp 98.4; Pulse Ox 96% on R/A; Weight 68.04 kg; Height kr3 5 ft. 7 in. (170.18 cm); Pain 6/10; 15:01 BP 128 / 75; Pulse 82; Resp 15; Pulse Ox 98% ; Pain 8/10; jl7 18:12 BP 120 / 81; Pulse 81; Resp 16; Pulse Ox 100% on R/A; Pain 1/10; hb 19:20 BP 114 / 62; Pulse 82; Resp 18 S; Pulse Ox 99% on R/A; ha1 19:48 BP 114 / 61; Pulse 78; Resp 16 S; Temp 98.3(O); Pulse Ox 98% on R/A; bb 14:30 Body Mass Index 23.49 (68.04 kg, 170.18 cm) kr3 ED Course: 14:26 Patient arrived in ED. rg4 14:27 Nikunj White MD is Attending Physician. rn 14:36 Triage completed. kr3 14:47 Cora Magallon, LACY is Primary Nurse. jl7 15:01 Arm band placed on right wrist. jl7 15:01 Patient has correct armband on for positive identification. Pulse ox on. NIBP on. jl7 15:01 Initial lab(s) drawn, by me, sent to lab. Inserted saline lock: 20 gauge in right jl7 antecubital area, using aseptic technique. Blood collected. 16:25 CT Abd/Pelvis - IV Contrast Only In Process Unspecified. EDMS 17:20 intiated a transfer with Avi Johnson from the [facility]. eb 18:[address] Galicia from [facility] with Dr. White for patient transfer consultation.eb 20:34 No provider procedures requiring assistance completed. Patient transferred, IV remains as6 in place. Administered Medications: 15:01 Drug: Zofran (Ondansetron) 4 mg Route: IVP; Site: right antecubital; jl7 15:54 Follow up: Response: No adverse reaction hb 15:01 Drug: morphine 4 mg Route: IVP; Infused Over: 4 mins; Site: right antecubital; jl7 15:54 Follow up: Response: No adverse reaction hb 17:00 Drug: Zosyn (piperacillin-tazobactam) 3.375 grams Route: IVPB; Infused Over: 60 mins; hb Site: right antecubital; 18:00 Follow up: Response: No adverse reaction; IV Status: Completed infusion jl7 18:25 Drug: NS 0.9% 1000 ml Route: IV; Rate: 1000 ml; Site: right antecubital; hb 20:33 Follow up: Response: No adverse reaction; IV Status: Completed infusion; IV Intake: as6 1000ml 19:23 Drug: Zofran (Ondansetron) 4 mg Route: IVP; Site: right antecubital; ha1 20:33 Follow up: Response: No adverse reaction as6 19:52 Drug: NS 0.9% 1000 ml Route: IV; Rate: 125 ml/hr; Site: right antecubital; ha1 20:33 Follow up: Response: No adverse reaction; IV Status: Infusion continued upon transfer; as6 IV Intake: 150ml 19:55 Drug: Dilaudid (HYDROmorphone) 1 mg Route: IVP; Site: right antecubital; ha1 20:33 Follow up: Response: No adverse reaction as6 Medication: 15:01 VIS not applicable for this client. jl7 Intake: 20:33 IV: 150ml; Total: 150ml. as6 20:33 IV: 1000ml; Total: 1150ml. as6 Outcome: 17:21 ER care complete, transfer ordered by . rn 20:34 Transferred by ground EMS to [facility], [facility], Transfer form completed. as6 X-rays sent w/ patient. 20:34 Condition: stable 20:34 Instructed on the need for transfer. 20:34 Patient left the ED. as6 Signatures: Dispatcher [employer] EDMS Peggy Joshi RN Nikunj Hernandez MD MD rn Baxter, Heather, RN RN hb Garcia, Rubi rg4 Cora Magallon RN RN jl7 Lexi Worthington Ashby, RN RN as6 Claudia Smith RN RN [email or web address] Dolores Rodriguez RN RN kr3 Corrections: (The following items were deleted from the chart) 14:38 14:38 Patient placed in an exam room, on a stretcher, kr3 kr3
--- NOTE | 2022-08-24 17:21 | EDPHYS ---
Physician Documentation [facility] Name: Martinez Nye Age: 76 yrs Sex: Male : 1945 Arrival Date: 08/24/2022 Time: 14:26 Bed 8 Private MD: ED Physician Nikunj White HPI: 08/24 15:01 This 76 yrs old Male presents to ER via Wheelchair with complaints of abd pain. rn 15:01 The patient presents with abdominal pain in the left lower quadrant. Onset: The rn symptoms/episode began/occurred 3 day(s) ago. The symptoms do not radiate. Associated signs and symptoms: Pertinent negatives: blood in stools, chest pain, constipation, diarrhea, dysuria, fever, hematuria, vomiting, vomiting blood. The symptoms are described as sharp, stabbing. Modifying factors: The symptoms are alleviated by nothing, the symptoms are aggravated by touching the area. Severity of pain: At its worst the pain was moderate in the emergency department the pain is unchanged. The patient has experienced a previous episode. The patient has been recently seen at the [facility] Emergency [facility]. Pt reports LLQ abd pain, had bowel perforation 3 weeks ago, s/p drain placement after needle aspiration. States abd pain starting up again, no fever, no vomiting/diarrhea. . Historical: - Allergies: 14:36 No Known Allergies; kr3 - PMHx: 14:36 Myocardial infarction; kr3 - PSHx: 14:36 cardiac stents; kr3 - Immunization history:: Adult Immunizations not up to date. - Social history:: Smoking status: Patient reports the use of cigarette tobacco products, smokes 1.5 packs per day. - Family history:: not pertinent. - Hospitalizations: : Patient was recently seen at. ROS: 15:01 Constitutional: Negative for fever, chills, and weight loss, Cardiovascular: Negative rn for chest pain, palpitations, and edema, Respiratory: Negative for shortness of breath, cough, wheezing, and pleuritic chest pain, Abdomen/GI: Negative for nausea, vomiting, diarrhea, and constipation, Back: Negative for injury and pain, MS/Extremity: Negative for injury and deformity, Skin: Negative for injury, rash, and discoloration, Neuro: Negative for headache, weakness, numbness, tingling, and seizure. Exam: 15:01 Constitutional: This is a well developed, well nourished patient who is awake, alert, rn and in no acute distress. Cardiovascular: Regular rate and rhythm with a normal S1 and S2. No gallops, murmurs, or rubs. Normal PMI, no JVD. No pulse deficits. Respiratory: Lungs have equal breath sounds bilaterally, clear to auscultation and percussion. No rales, rhonchi or wheezes noted. No increased work of breathing, no retractions or nasal flaring. Abdomen/GI: soft, mild LLQ tenderness, no skin changes, no masses Skin: Warm, dry Vital Signs: 14:30 BP 111 / 43; Pulse 85; Resp 18; Temp 98.4; Pulse Ox 96% on R/A; Weight 68.04 kg; Height kr3 5 ft. 7 in. (170.18 cm); Pain 6/10; 15:01 BP 128 / 75; Pulse 82; Resp 15; Pulse Ox 98% ; Pain 8/10; jl7 18:12 BP 120 / 81; Pulse 81; Resp 16; Pulse Ox 100% on R/A; Pain 1/10; hb 19:20 BP 114 / 62; Pulse 82; Resp 18 S; Pulse Ox 99% on R/A; ha1 19:48 BP 114 / 61; Pulse 78; Resp 16 S; Temp 98.3(O); Pulse Ox 98% on R/A; bb 14:30 Body Mass Index 23.49 (68.04 kg, 170.18 cm) kr3 MDM: 14:27 Patient medically screened. rn 15:01 Differential diagnosis: bowel obstruction, diverticulitis, non-specific abd pain, fluid rn collection, perforation, free abd fluid, infection. 17:18 Data reviewed: vital signs, nurses notes, lab test result(s), radiologic studies, CT rn scan, and as a result, I will admit patient. Test interpretation: by ED physician or midlevel provider: CT abdomen pelvis shows inflammation in LLQ, no free fluid or abscess noted on my read. Counseling: I had a detailed discussion with the patient and/or guardian regarding: the historical points, exam findings, and any diagnostic results supporting the discharge/admit diagnosis, lab results, radiology results, the need for further work-up and treatment in the hospital, the need to transfer to another facility, for higher level of care, continuity of care. Response to treatment: the patient's symptoms have mildly improved after treatment, and as a result, I will admit patient. Admission orders: after a detailed discussion of the patient's condition and case, the admit orders are written by me. ED course: Pt with elevated WBC, ct shows phlegmon adjacent to colon, still shows mass that could be malignancy. Free air has improved. Increase in pain. Patient states was in contact with a Dr. Atwood, who told him to get us to initiate transfer back to [facility]. . 08/24 14:36 Order name: CBC with Diff; Complete Time: 15:08 rn 08/24 14:36 Order name: CMP; Complete Time: 15:23 rn 08/24 14:36 Order name: CT Abd/Pelvis - IV Contrast Only; Complete Time: 17:17 rn 08/24 15:46 Order name: SARS RAPID; Complete Time: 17:32 rn 08/24 14:36 Order name: IV Saline Lock; Complete Time: 15:01 rn 08/24 14:36 Order name: Labs collected and sent; Complete Time: 15:01 rn Administered Medications: 15:01 Drug: Zofran (Ondansetron) 4 mg Route: IVP; Site: right antecubital; jl7 15:54 Follow up: Response: No adverse reaction hb 15:01 Drug: morphine 4 mg Route: IVP; Infused Over: 4 mins; Site: right antecubital; jl7 15:54 Follow up: Response: No adverse reaction hb 17:00 Drug: Zosyn (piperacillin-tazobactam) 3.375 grams Route: IVPB; Infused Over: 60 mins; hb Site: right antecubital; 18:00 Follow up: Response: No adverse reaction; IV Status: Completed infusion jl7 18:25 Drug: NS 0.9% 1000 ml Route: IV; Rate: 1000 ml; Site: right antecubital; hb 20:33 Follow up: Response: No adverse reaction; IV Status: Completed infusion; IV Intake: as6 1000ml 19:23 Drug: Zofran (Ondansetron) 4 mg Route: IVP; Site: right antecubital; ha1 20:33 Follow up: Response: No adverse reaction as6 19:52 Drug: NS 0.9% 1000 ml Route: IV; Rate: 125 ml/hr; Site: right antecubital; ha1 20:33 Follow up: Response: No adverse reaction; IV Status: Infusion continued upon transfer; as6 IV Intake: 150ml 19:55 Drug: Dilaudid (HYDROmorphone) 1 mg Route: IVP; Site: right antecubital; ha1 20:33 Follow up: Response: No adverse reaction as6 Disposition Summary: 08/24/22 17:21 Transfer Ordered Transfer Location: [facility] rn Reason: Higher level of care rn Condition: Stable rn Problem: an ongoing problem rn Symptoms: have worsened rn Accepting Physician: Dr. Mendez(08/24/22 20:34) as6 Diagnosis - Left sided colitis - With phlegmon rn - Mass of colon rn Forms: - Medication Reconciliation Form rn - SBAR form rn Signatures: Dispatcher [employer] EDJose Alva MD MD cha Nieto, Roman, MD MD rn Baxter, Heather, RN RN Cora Valdivia RN LACY jl7 Ho Ha RN RN as6 Claudia Smith RN RN ha1 Dolores Rodriguez, RN RN kr3 Corrections: (The following items were deleted from the chart) 18:08 17:21 Dr. pendleton rn 20:34 18:08 Dr. Mendez rn as6
[2022-08-24 17:28] LABS: SARS-CoV-2 Antigen Rapid Res Negative (Negative)
[2022-08-24] MEDS ORDERED: PIPERACIL/TAZO 3.375 GM VIAL IV ONE (17:51)
[2022-08-24] MEDS ORDERED: HYDROMORPHONE HCL 0.5 MG/0.5 ML INJ ONE (19:53)
[2022-08-24] MEDS ORDERED: NA CHLORIDE 0.9% 1,000 ML ONE (19:54)
[2022-08-24 20:43] VITALS: BP 114/61; TEMP 98.3; O2SAT 98
== END 2022-08-24 20:34 | disposition short-term general hospital (02) ==
LOC: ER 14:23
DX: K51.514 Left sided colitis with abscess (principal); K63.9 Disease of intestine, unspecified; Z20.822 Contact with and (suspected) exposure to COVID-19; F17.210 Nicotine dependence, cigarettes, uncomplicated; Z95.818 Presence of other cardiac implants and grafts
CPT/HCPCS: 96365; 96361; 85025; 36415; 80053; 74177; 96375; 99285; 87811; Q9967; J2543; J1170 ×2; J7030; J2405 ×2

== ENCOUNTER 2024-11-23 06:23 | Day surgery (SDC) | payer OTHER ==
[2024-11-22 14:43] LABS: Absolute Basophils 0.1 K/uL (0-0.5); Absolute Eosinophils 0.6 K/uL (0-0.5); Absolute Monocytes 0.9 K/uL (0.1-1.3); Absolute Neutrophil 6.5 K/uL (1.8-8.0); Eosinophils % 6.2 % (0-4.4); Hematocrit 42.1 % (39.6-49.0); Hemoglobin 14.3 g/dL (13.6-17.9); Lymphocytes % 10.9 % (15.3-44.8); MCH 32.9 pg (27.0-35.0); MPV 8.5 fL (7.6-11.3); Monocytes % 10.1 % (3.3-12.3); Neutrophils % 71.8 % (41.7-73.7); Platelets 345 thou/uL (152-406); RBC Red Blood Cell Count 4.34 M/uL (4.33-5.43); Red Cell Distribution Width 14.3 % (12.1-15.2)
[2024-11-22 14:55] LABS: Anion Gap 6.3 mEq/L (5.0-15.0)
[2024-11-22 14:58] LABS: Potassium 4.3 mEq/L (3.5-5.1)
[2024-11-23] MEDS ORDERED: METHYLPREDNISOLONE 125 MG INJ ONE (06:55)
[2024-11-23] MEDS: Ringers Lactate 1,000 ML IV ONE (07:00)
[2024-11-23] MEDS ORDERED: ONDANSETRON 4 MG/2 ML VIAL ONE (07:07)
[2024-11-23] MEDS ORDERED: FENTANYL CITR 100 MCG/2 ML ONE (07:07)
[2024-11-23] MEDS ORDERED: LIDOCAINE 2% MPF 5 ML VIAL ONE (07:07)
[2024-11-23] MEDS ORDERED: propofoL 200 MG/20 ML VIAL IV ONE (07:07)
[2024-11-23] MEDS ORDERED: NS 0.9% VIAL 20 ML ONE (07:21)
[2024-11-23] MEDS ORDERED: HEPARIN 5000 UNIT/ML 1 ML VIAL ONE (07:21)
[2024-11-23] MEDS ORDERED: ETOMIDATE 20 MG/10 ML VIAL IV ONE ×2 (07:34→07:38)
[2024-11-23] MEDS ORDERED: EPHEDRINE SULF 50 MG/ML VIAL ONE (07:48)
[2024-11-23] MEDS: CEFAZOLIN SODIUM 2 GM/VIAL ONE (07:57)
[2024-11-23] MEDS ORDERED: Mastisol Adhesive Liq ONE (08:19)
--- NOTE | 2024-11-23 08:38 | P.OP ---
Date of Service: 11/23/24 Preop diagnosis: Stage IV colon cancer Postop diagnosis: Same Procedure performed: Placement of right IJ vascular access device, inter pretation of intraoperative Doppler and fluoroscopy Surgeon: Luis Smith MD Roof Foreman: [place] ALONSO Estimated blood loss: Minimal Specimen: None Findings: Normal anatomy Anesthesia: General Complications: None Drains: None Fluids and blood products: Nonapplicable Disposition: Recovery room Operative note: Patient brought to the OR and placed in supine position. General anesthesia began. Patient prepped and draped in usual sterile fashion. Marcaine 0.5% infiltrated locally for postop pain control. Doppler device used to identify the right internal jugular vein. 18-gauge needle used to access the right internal jugular vein and guidewire passed. Position confirmed with fluoroscopy. 3 cm counterincision made on the right anterior chest. Bleeding controlled cautery. Pocket created. Tunneling device used to tunnel the catheter between the 2 wounds. Seldinger technique used and tip of the catheter placed in the SVC right atrial junction. Catheter cut to appropriate size and attached to the Port-A-Cath device. Port-A-Cath device attached to subcutaneous tissue with 3-0 Vicryl. Port flushed with heparin and packed with heparin with good blood flow. 3-0 chromic used to approximate subcu tissue and close skin. Sterile dressing applied. Patient awakened and taken to recovery room in good general condition. A chest x-ray has been ordered. CC: Dr. Barriga's office
[2024-11-23] MEDS ORDERED: HYDROCODONE/APAP 7.5/325 MG TAB PO PRN (08:39)
--- NOTE | 2024-11-23 09:01 | RAD REPORT ---
EXAM: Chest Single View HISTORY: 79 years Male Status post vascular access device placement COMPARISON: 07/27/2022 FINDINGS: LUNGS/PLEURA: Increased coarsening of the pulmonary interstitium. Calcified right midlung nodule. CARDIAC/MEDIASTINUM: Mild cardiomegaly UPPER ABDOMEN: No significant abnormality. BONES: No acute abnormality. LINES/TUBES/OTHER: Right IJ approach Port-A-Cath placement with tip overlying the SVC. IMPRESSION: Right IJ approach Port-A-Cath with tip overlying the proximal SVC. No pneumothorax. Diffuse prominence of the pulmonary interstitium could reflect edema.
[2024-11-23 09:52] VITALS: BP 129/65; TEMP 97; O2SAT 97
--- NOTE | 2024-11-23 09:58 | RAD REPORT ---
EXAM: Fluoroscopy use, Fluoroscopy <1 Hour HISTORY: PORT-A-CATH COMPARISON: None FINDINGS: Multiple images were sent to PACS, during a fluoroscopically guided procedure. No radiologi st was involved in protocoling or performance of the study, and no radiologist was present for the duration of the procedure. No interpretation of the saved images will be provided. Total fluoroscopy time: 0.3. IMPRESSION: Documentation of fluoroscopy use as above. Transcribed Date/Time: 11/23/2024 9:58 AM
--- NOTE | 2024-11-23 12:34 | EKG ---
Test Date: 2024-11-22 Test Time: 14:31:27 Director Internal Communications: SERGEY MEASUREMENT RESULTS: Intervals: Rate: 67 MS: 138 QRSD: 104 QT: 414 QTc: 437 Supai: P: 45 MS: 138 QRS: 52 T: 15 INTERPRETIVE STATEMENTS: Sinus rhythm with premature atrial complexes Low voltage QRS Incomplete right bundle branch block Borderline ECG Compared to ECG 07/27/2022 09:09:47 Atrial premature complex(es) now present Incomplete right bundle-branch block now present Atrial fibrillation no longer present Myocardial infarct finding no longer present Electronically Signed On 11-23-24 12:32:22 CDT by Cristo Singh
== END 2024-11-23 10:00 | disposition home or self-care (01) ==
LOC: OR 06:23
PROVIDERS: ATTEND Surgery
PROC: 0JH60WZ Insertion of Totally Implantable Vascular Access Device into Chest Subcutaneous Tissue and Fascia, Open Approach (ICD-10-PCS; principal; 2024-11-23 07:30)
DX: C18.9 Malignant neoplasm of colon, unspecified (principal)
CPT/HCPCS: 93005; 85025; 80048; 36415; 71045; 36561; J1644 ×2; A4216; J2704; J2003; J3010; J2405; J7120; C1788; 76000; J2919

== ENCOUNTER 2025-01-11 20:16 | Emergency (ER) | payer OTHER ==
--- NOTE | 2025-01-11 21:36 | RAD REPORT ---
Abdomen Exam Limited: 01/11/2025 9:27 PM CLINICAL HISTORY: ABD PAIN STUDY: Limited right upper quadrant ultrasound of abdomen. COMPARISON: None. FINDINGS: Liver: Within normal limits. Bile ducts: No intrahepatic or extrahepatic biliary ductal dilatation. Common bile duct measures 4 mm. Gallbladder: Mild gallbladder wall thickening with sludge. No calcified, shadowing gallstones identif ied. No sonographic Main sign. IMPRESSION: Nonspecific gallbladder wall thickening with sludge but no definite stones and no sonographic Main sign elicited. No specific imaging features to suggest acute cholecystitis.
--- NOTE | 2025-01-11 23:05 | EDPHYS ---
Physician Documentation [facility] Name: Martinez Nye Age: 79 yrs Sex: Male : 1945 Arrival Date: 01/11/2025 Time: 20:16 Bed IW10 Private MD: ED Physician Nikunj White HPI: 01/11 23:40 This 79 yrs old Male presents to ER via Ambulatory with complaints of rib pain. kb 23:40 Patient is a 79-year-old male who presents for right upper quadrant pain that started kb earlier today. States the pain has been persistent and he did not want to deal with it anymore so that is what brought him in this evening. Denies nausea, vomiting, diarrhea, fever. Historical: - Allergies: 21:14 No Known Allergies; al5 - PMHx: 21:14 Myocardial infarction; lung cancer; al5 - PSHx: 21:14 cardiac stents; al5 - Immunization history:: Adult Immunizations up to date. - Infectious Disease History:: Denies. - Social history:: Smoking status: unknown. ROS: 23:04 Constitutional: As per HPI kb Exam: 23:40 Constitutional: This is a well developed, well nourished patient who is awake, alert, kb and in no acute distress. Head/Face: Normocephalic, atraumatic. ENT: Moist Mucous membranes Cardiovascular: Regular rate Respiratory: Respirations even and unlabored. No increased work of breathing. Talking in full sentences Skin: Warm, dry with normal turgor. Normal color. MS/ Extremity: Pulses equal, no cyanosis. Neurovascular intact. Full, normal range of motion. Neuro: Awake and alert, GCS 15, oriented to person, place, time, and situation. 23:40 Abdomen/GI: Inspection: abdomen appears normal, Bowel sounds: normal, Palpation: soft, in all quadrants, mild abdominal tenderness, in the right upper quadrant, Vital Signs: 21:10 BP 142 / 72; Pulse 72; Resp 18; Temp 98.2; Pulse Ox 96% on R/A; Weight 80.74 kg; Height al5 5 ft. 7 in. ; 21:10 Body Mass Index 27.88 (80.74 kg, 170.18 cm) al5 MDM: 20:35 Medical Screening Exam initiated kb 23:43 Differential diagnosis: Cholelithiasis, cholecystitis, GERD, pancreatitis. Data kb reviewed: vital signs, nurses notes. Historians other than the Patient: Family Member: Brother. ED course: Patient elected to leave from the lobby prior to completion of diagnostic studies.. 01/11 21:08 Order name: Abdomen Limited US; Complete Time: 21:38 kb Administered Medications: 23:32 Not Given (Patient Eloped): ondansetron 4 mg IVP once; over 2 minutes al5 23:32 Not Given (Patient Eloped): morphineor iv 4 mg IVP once over 4 mins al5 23:32 Not Given (Patient Eloped): ns 0.9% 1000 ml IV at 1 bolus Per protocol; to be given as al5 a bolus over 60 minutes Disposition: 23:44 Co-signature as Attending Physician, Nikunj White MD I reviewed the patient's care rn provided by the Advanced Practice Provider and agree with the diagnosis and treatment plan. Disposition Summary: 01/11/25 23:04 Eloped Notes: Disposition: after being seen by provider kb Reason: wait time kb Diagnosis - Upper abdominal pain, unspecified kb Followup: kb - With: Emergency Department - When: As needed - Reason: Worsening of condition Followup: kb - With: Private Physician - When: 2 - 3 days - Reason: Recheck today's complaints, Continuance of care, Re-evaluation by your physician Signatures: Dispatcher [employer] EDOR Antonietta Bonilla, AUDIT SPECIALIST-C AUDIT SPECIALIST-Ckb Nikunj White MD MD rn Langhorst, Amanda, RN RN al5 Corrections: (The following items were deleted from the chart) 21:08 21:08 CBC+H.LAB.BRZ ordered. EDOR EDMS 21:08 21:08 COMPREHENSIVE METABOLIC PANEL+C.LAB.BRZ ordered. EDOR EDOR 21:08 21:08 LIPASE+C.LAB.BRZ ordered. EDOR EDMS 21:08 21:08 Abdomen Limited+US.RAD.BRZ ordered. EDOR EDOR 21:38 21:38 Abdomen Pelvis W Con+CT.RAD.BRZ ordered. EDOR EDMS 23:32 21:08 IV Saline Lock ordered. kb al5 23:32 21:08 Labs collected and sent ordered. clare al5
--- NOTE | 2025-01-11 23:05 | ER ---
Nurse's Notes [facility] Name: Martinez Nye Age: 79 yrs Sex: Male : 1945 Arrival Date: 01/11/2025 Time: 20:16 Bed IW10 Private MD: Diagnosis: Upper abdominal pain, unspecified Presentation: 01/11 21:10 Chief complaint: Patient states: c/o R sided rib pain since today, denies injury. al5 Coronavirus screen: At this time, the client does not indicate any symptoms associated with coronavirus-19. Ebola Screen: No symptoms or risks identified at this time. Initial Sepsis Screen: Does the patient meet any 2 criteria? No. Patient's initial sepsis screen is negative. Does the patient have a suspected source of infection? No. Patient's initial sepsis screen is negative. Risk Assessment: Do you want to hurt yourself or someone else? Patient reports no desire to harm self or others. Onset of symptoms was January 11, 2025. 21:10 Method Of Arrival: Ambulatory al5 21:10 Acuity: QUENTIN 3 al5 Triage Assessment: 21:14 General: Appears in no apparent distress. uncomfortable, Behavior is calm, cooperative. al5 Pain: Complains of pain in left sixth intercostal space and left seventh intercostal space. EENT: No signs and/or symptoms were reported regarding the EENT system. Neuro: Level of Consciousness is awake, alert, obeys commands, Oriented to person, place, time, situation. Cardiovascular: Capillary refill < 3 seconds Patient's skin is warm and dry. Respiratory: Reports rib pain Airway is patent Respiratory effort is even, unlabored, Respiratory pattern is regular, symmetrical. GI: No signs and/or symptoms were reported involving the gastrointestinal system. : No signs and/or symptoms were reported regarding the genitourinary system. Derm: Skin is intact, is healthy with good turgor, Skin is pink, warm \T\ dry. normal. Musculoskeletal: No signs and/or symptoms reported regarding the musculoskeletal system. Historical: - Allergies: 21:14 No Known Allergies; al5 - PMHx: 21:14 Myocardial infarction; lung cancer; al5 - PSHx: 21:14 cardiac stents; al5 - Immunization history:: Adult Immunizations up to date. - Infectious Disease History:: Denies. - Social history:: Smoking status: unknown. Screenin:[address] [facility] ED Fall Risk Assessment (Adult) History of falling in the last 3 months, al5 including since admission No falls in past 3 months (0 pts) Confusion or Disorientation No (0 pts) Intoxicated or Sedated No (0 pts) Impaired Gait No (0 pts) Mobility Assist Device Used No (0 pt) Altered Elimination No (0 pt) Score/Fall Risk Level 0 - 2 = Low Risk Oriented to surroundings, Maintained a safe environment, Hourly rounding (assess needs \T\ fall precautionary measures) done. Abuse screen: Denies threats or abuse. Denies injuries from another. Nutritional screening: No deficits noted. Tuberculosis screening: No symptoms or risk factors identified. Assessment: 21:15 Reassessment: see triage assessment. al5 22:41 Reassessment: called patient back into room with no answer, registration states that al5 they were sitting a chair that is now empty, notified charge nurse. 23:03 Reassessment: patient eloped, notified provider and charge nurse. al5 Vital Signs: 21:10 BP 142 / 72; Pulse 72; Resp 18; Temp 98.2; Pulse Ox 96% on R/A; Weight 80.74 kg; Height al5 5 ft. 7 in. ; 21:10 Body Mass Index 27.88 (80.74 kg, 170.18 cm) al5 ED Course: 20:19 Patient arrived in ED. im 20:34 Antonietta Bonilla FNP-C is [facility]. kb 20:35 Nikunj White MD is Attending Physician. kb 21:14 Triage completed. al5 21:15 Arm band placed on right wrist. Patient placed in the treatment room, in view of staff al5 members, on pulse oximetry, Patient notified of wait time. 21:15 Patient has correct armband on for positive identification. Provided Education on: plan al5 of care. 21:15 No provider procedures requiring assistance completed. al5 21:30 Abdomen Limited US In Process Unspecified. EDMS 22:39 Dania Parker, LACY is Primary Nurse. kd3 22:53 Radiology exam delayed due to lab results not completed at this time. (BUN/Creatinine) ag6 IV insertion attempt and/or patient not having appropriate IV at this time. 23:32 Latanya Spear, RN is Primary Nurse. al5 23:33 Patient did not have IV access during this emergency room visit. al5 Administered Medications: 23:32 Not Given (Patient Eloped): ondansetron 4 mg IVP once; over 2 minutes al5 23:32 Not Given (Patient Eloped): morphineor iv 4 mg IVP once over 4 mins al5 23:32 Not Given (Patient Eloped): ns 0.9% 1000 ml IV at 1 bolus Per protocol; to be given as al5 a bolus over 60 minutes Medication: 21:15 VIS not applicable for this client. al5 Outcome: 23:33 Eloped from patient exam room, after seeing physician Time discovered patient gone: December [id number] at 23:03 23:33 Condition: stable al5 23:34 Patient left the ED. al5 Signatures: Dispatcher [employer] EDMS Antonietta Bonilla, STOCKROOM SUPERVISOR-C STOCKROOM SUPERVISOR-Nathalie Armando 6 Dania Parker RN RN kd3 Kasey Jenkins Amanda, RN RN al5 Corrections: (The following items were deleted from the chart) 23:34 23:33 Eloped al5 al5
[2025-01-12 00:26] VITALS: BP 142/72; TEMP 98.2; O2SAT 96
== END 2025-01-11 23:34 | disposition left against medical advice (07) ==
LOC: ER 20:16
DX: R10.11 Right upper quadrant pain (principal); Z95.818 Presence of other cardiac implants and grafts; I25.2 Old myocardial infarction; Z85.118 Personal history of other malignant neoplasm of bronchus and lung
CPT/HCPCS: 76705; 99282